=== PATIENT | female | born 1965 | race African-American/Black ===

== ENCOUNTER 2017-04-18 10:21 | Observation (INO) | payer BC, OTHER ==
[2017-04-18] MEDS ORDERED: NITROGLYCERIN 0.4 MG/TAB 25 TAB/BOTTLE SL PRN (10:52)
[2017-04-18] MEDS ORDERED: NORMAL SALINE 1000 ML 1,000 ML IV PRN (10:52)
[2017-04-18] MEDS ORDERED: LANSOPRAZOLE 30 MG TAB.RAP.DR PO ONE (11:30)
[2017-04-18 12:05] LABS: ABSOLUTE LYMPHOCYTES (AUTO) 1.7 10^3/uL (0.5-4.7); ABSOLUTE MONOCYTES (AUTO) 0.4 10^3/uL (0.1-1.4); ABSOLUTE NEUT (AUTO) 2.7 10^3/uL (1.7-8.2); BASOPHILS % (AUTO) 0.5 % (0-2); EOSINOPHILS % (AUTO) 0.8 % (0-6); HEMATOCRIT 37.1 % (36.0-47.0); HEMOGLOBIN 12.2 g/dL (12.0-15.5); HGB HCT DIFFERENCE -0.5; LYMPHOCYTES % (AUTO) 35.2 % (13-45); MEAN CORPUSCULAR HEMOGLOBIN 22.2 pg (27.0-33.4); MEAN CORPUSCULAR HGB CONC 32.8 g/dL (32.0-36.0); MEAN CORPUSCULAR VOLUME 68 fl (80-97); MONOCYTES % (AUTO) 8.5 % (3-13); RED BLOOD COUNT 5.47 10^6/uL (3.72-5.28); RED CELL DISTRIBUTION WIDTH 14.4 % (11.5-14.0)
[2017-04-18 12:29] LABS: ALANINE AMINOTRANSFERASE 24 U/L (9-52); ALBUMIN 4.1 g/dL (3.5-5.0); ALKALINE PHOSPHATASE 59 U/L (38-126); ANION GAP 12 (5-19); ASPARTATE AMINO TRANSFERASE 20 U/L (14-36); BILIRUBIN,DIRECT 0.3 mg/dL (0.0-0.4); BILIRUBIN,TOTAL 0.5 mg/dL (0.2-1.3); BLOOD UREA NITROGEN 18 mg/dL (7-20); CALCIUM 9.5 mg/dL (8.4-10.2); CARBON DIOXIDE 24 mmol/L (22-30); CHLORIDE 103 mmol/L (98-107); CREATINE KINASE 81 U/L (30-135); GLUCOSE 91 mg/dL (75-110); POTASSIUM 3.1 mmol/L (3.6-5.0); SODIUM 139.1 mmol/L (137-145); TOTAL PROTEIN 7.2 g/dL (6.3-8.2)
[2017-04-18 13:16] LABS: CREATINE KINASE MB 0.32 ng/mL (<4.55)
[2017-04-18 13:20] LABS: TROPONIN I < 0.012 ng/mL
--- NOTE | 2017-04-18 13:34 | EKG REPORT ---
SEVERITY:- BORDERLINE ECG - SINUS RHYTHM BORDERLINE T WAVE ABNORMALITIES : Confirmed by: Bob Jurado MD 18-Apr-2017 13:34:24
--- NOTE | 2017-04-18 13:56 | RADIOLOGY REPORT (SQ) ---
EXAM DESCRIPTION: CTA CHEST COMPLETED DATE/TIME: 04/18/2017 1:24 pm REASON FOR STUDY: PE COMPARISON: 05/21/2014 TECHNIQUE: CT scan of the chest performed using helical scanning technique with dynamic intravenous contrast injection. Images reviewed with lung, soft tissue and bone windows. Reconstructed coronal and sagittal MPR images reviewed. Additional 3 dimensional post-processing performed to develop Maximal Intensity Projection images (MS P). All images stored on PACS. All CT scanners at this facility use dose modulation, iterative reconstruction, and/or weight based d osing when appropriate to reduce radiation dose to as low as reasonably achievable (ALARA). [facility]: Dose Right [facility]: CareDose [facility]: Dose Right [facility]: Teradose 4D [facility]: Diagnovus CONTRAST TYPE AND DOSE: contrast/concentration: Isovue 370.00 mg/ml; Total Contrast Delivered: 61.0 ml; Total Saline Delivered: 106.1 ml RENAL FUNCTION: Creatinine 0.8 BUN 18 RADIATION DOSE: Up-to-date CT equipment and radiation dose reduction techniques were employed. CTDIv ol: 9.4 - 13.2 mGy. DLP: 340 mGy-cm. . LIMITATIONS: None. FINDINGS: LUNGS AND PLEURA: No masses, infiltrates, pneumothorax. No pleural effusions, calcificati ons. AORTA AND GREAT VESSELS: No aneurysm or dissection. HEART: No pericardial effusion. PULMONARY ARTERIES: No emboli visualized in the main pulmonary arteries or the segmental branches. HILAR AND MEDIASTINAL STRUCTURES: No identified masses or abnormal nodes. HARDWARE: None in the chest. UPPER ABDOMEN: Gallstones. THYROID AND OTHER SOFT TISSUES: No masses. No adenopathy. BONES: No acute or significant finding. 3D MIPS: Confirm above findings. OTHER: Breast implants are present. The implant on the left appears to be collapsed IMPRESSION: NORMAL CTA OF THE CHEST. NO PULMONARY EMBOLI. TECHNICAL DOCUMENTATION: JOB ID: [id number] Quality ID # [id number]: Final reports with documentation of one or more dose reduction techniques (e.g., Au tomated exposure control, adjustment of the mA and/or kV according to patient size, use of iterative reconstruction technique) 2010 [employer]- All Rights Reserved
[2017-04-18] MEDS: POTASSIUM CHLORIDE 10 MEQ TABLET.SA PO SCH ×2 (14:21→17:38)
[2017-04-18 14:53] LABS: PARTIAL THROMBOPLASTIN TIME 25.4 SEC (23.5-35.8); PROTHROMBIN TIME 13.9 SEC (11.4-15.4)
--- NOTE | 2017-04-18 14:55 | RADIOLOGY REPORT (SQ) ---
EXAM DESCRIPTION: CHEST PA/LAT COMPLETED DATE/TIME: 04/18/2017 2:44 pm REASON FOR STUDY: PE COMPARISON: 05/21/2014 EXAM PARAMETERS: NUMBER OF VIEWS: two views TECHNIQUE: Digital Frontal and Lateral radiographic views of the chest acquired. RADIATION DOSE: NA LIMITATIONS: none FINDINGS: LUNGS AND PLEURA: No opacities, masses or pneumothorax. No pleural effusion. MEDIASTINUM AND HILAR STRUCTURES: No masses or contour abnormalities. HEART AND VASCULAR STRUCTURES: Heart normal size. No evidence for failure. BONES: No acute findings. HARDWARE: None in the chest. OTHER: No other significant finding. IMPRESSION: NO SIGNIFICANT RADIOGRAPHIC FINDING IN THE CHEST. TECHNICAL DOCUMENTATION: JOB ID: [id number] [employer]- All Rights Reserved
[2017-04-18 18:37] LABS: CREATINE KINASE MB 0.37 ng/mL (<4.55)
[2017-04-18 18:44] LABS: TROPONIN I < 0.012 ng/mL
--- NOTE | 2017-04-18 19:07 | PDOC H&P ---
History of Present Illness Admission Date/PCP: 04/18/17 10:21 SHANA MILES MD Patient complains of: Chest pain, Shortness of breath, Fatigue History of Present Illness: KIRSTIE BENOIT is a 51 year old female known to my practice who presented to the office earlier today with about 1-2 weeks intermittent episodes of chest pain, shortness of breath and fatigue. She seek medical evaluation this morning due to increase intensity in her chest pain and shortness of breath with pain radiating into her upper back. She denied associated palpitation, diaphoresis, nausea, vomiting or abdominal pain. She denied any fever or chills. Her morbidities include right breast cancer s/p mastectomy, right upper extremity post surgical lymphedema, and Anemia. Her medication regimen include Tamoxifen for breast cancer adjunct therapy. Past Medical History Cardiac Medical History: Reports: Hypertension Neurological Medical History: Reports: Migraine Malignancy Medical History: Reports: Breast Cancer - Right breast , s/p mastectomy Hematology: Reports: Anemia Social History Smoking Status: Never Smoker Hx Recreational Drug Use: No Drugs: None Hx Prescription Drug Abuse: No Family History Parental Family History Reviewed: Yes Children Family History Reviewed: Yes Sibling(s) Family History Reviewed.: Yes Medication/Allergy Home Medications: Hydrochlorothiazide 25 mg PO DAILY 05/21/14 Sumatriptan Succ/Naproxen Sod [Treximet 85-500 mg Tablet] 1 each PO DAILY PRN Topiramate [Topamax 100 mg Tablet] 300 mg PO QHS 05/21/14 Allergies/Adverse Reactions: Sulfa (Sulfonamide Antibiotics) Adverse Reaction (Verified 05/21/14 15:12) Review of Systems Constitutional: ABSENT: chills, fever(s), headache(s), weight gain, weight loss Eyes: ABSENT: visual disturbances Ears: ABSENT: hearing changes Nose, Mouth, and Throat: ABSENT: as per HPI, headache(s), mouth pain, sore throat, vertigo, other Breasts: PRESENT: other - Right mastectomy healed scar Cardiovascular: ABSENT: chest pain, dyspnea on exertion, edema, orthropnea, palpitations Respiratory: ABSENT: cough, hemoptysis Gastrointestinal: ABSENT: abdominal pain, constipation, diarrhea, hematemesis, hematochezia, nausea, vomiting Musculoskeletal: ABSENT: joint swelling Integumentary: PRESENT: other - healed wound of prior mastectomy Neurological: ABSENT: abnormal gait, abnormal speech, confusion, dizziness, focal weakness, syncope Psychiatric: ABSENT: anxiety, depression, homidical ideation, suicidal ideation Endocrine: ABSENT: cold intolerance, heat intolerance, menstrual abnormalities, polydipsia, polyuria Hematologic/Lymphatic: ABSENT: easy bleeding, easy bruising, lymphadenopathy Allergic/Immunologic: ABSENT: as per HPI, seasonal rhinorrhea, other Physical Exam Vital Signs: Temp Pulse Resp BP Pulse Ox 98.3 F 77 17 105/64 100 04/18/17 15:28 04/18/17 15:28 04/18/17 15:28 04/18/17 15:28 04/18/17 15:28 Intake & Output 04/17/17 04/18/17 04/19/17 06:59 06:59 06:59 Intake Total 858 Balance 858 Weight 69.626 kg General appearance: PRESENT: no acute distress, cooperative Head exam: PRESENT: atraumatic, normocephalic Eye exam: PRESENT: conjunctiva pink, EOMI, PERRLA. ABSENT: scleral icterus Ear exam: PRESENT: normal external ear exam Mouth exam: PRESENT: moist, tongue midline Teeth exam: ABSENT: dental caries, dental tenderness, edentulous, poor dentation , other Throat exam: ABSENT: post pharyngeal erythema, tonsillar erythema, tonsillar exudate, tonsillogmegaly, other Neck exam: ABSENT: carotid bruit, full ROM, JVD, lymphadenopathy, meningismus, tenderness, thyromegaly, tracheal deviation, tracheostomy, other Respiratory exam: PRESENT: clear to auscultation pardeep Cardiovascular exam: PRESENT: RRR. ABSENT: diastolic murmur, rubs, systolic murmur Vascular exam: PRESENT: normal capillary refill. ABSENT: pallor GI/Abdominal exam: PRESENT: normal bowel sounds, soft. ABSENT: distended, guarding, mass, organolmegaly, rebound, tenderness Rectal exam: PRESENT: deferred Extremities exam: ABSENT: pedal edema Musculoskeletal exam: PRESENT: tenderness Neurological exam: PRESENT: alert, awake, oriented to person, oriented to place , oriented to time, oriented to situation, CN II-XII grossly intact. ABSENT: motor sensory deficit Psychiatric exam: PRESENT: appropriate affect, normal mood. ABSENT: homicidal ideation, suicidal ideation Skin exam: PRESENT: dry, intact, warm. ABSENT: cyanosis, rash Results Laboratory Results: 04/18/17 11:25 04/18/17 11:25 04/18/17 04/18/17 11:25 11:25 WBC 5.0 RBC 5.47 H Hgb 12.2 Hct 37.1 MCV 68 L MCH 22.2 L MCHC 32.8 RDW 14.4 H Plt Count 196 Seg Neutrophils % 55.0 Lymphocytes % 35.2 Monocytes % 8.5 Eosinophils % 0.8 Basophils % 0.5 Absolute Neutrophils 2.7 Absolute Lymphocytes 1.7 Absolute Monocytes 0.4 Absolute Eosinophils 0.0 Absolute Basophils 0.0 Sodium 139.1 Potassium 3.1 L Chloride 103 Carbon Dioxide 24 Anion Gap 12 BUN 18 Creatinine 0.80 Est GFR ( Amer) > 60 Est GFR (Non-Af Amer) > 60 Glucose 91 Calcium 9.5 Total Bilirubin 0.5 AST 20 ALT 24 Alkaline Phosphatase 59 Total Protein 7.2 Albumin 4.1 04/18/17 04/18/17 04/18/17 11:25 12:20 17:55 Creatine Kinase 81 80 CK-MB (CK-2) 0.32 Troponin I < 0.012 04/18/17 17:55 Creatine Kinase CK-MB (CK-2) 0.37 Troponin I < 0.012 Impressions: Chest X-Ray 04/18/17 00:00 IMPRESSION: NO SIGNIFICANT RADIOGRAPHIC FINDING IN THE CHEST. Chest/Abdomen CTA 04/18/17 00:00 IMPRESSION: NORMAL CTA OF THE CHEST. NO PULMONARY EMBOLI. Assessment & Plan - Diagnosis (1) Chest pain with moderate risk of acute coronary syndrome Is this a current diagnosis for this admission?: YesPlan: See admitting physician orders. (2) Shortness of breath Is this a current diagnosis for this admission?: YesPlan: See admitting physician orders. (3) History of cancer of right breast Is this a current diagnosis for this admission?: YesPlan: See admitting physician orders. (4) Sickle cell trait Is this a current diagnosis for this admission?: YesPlan: See admitting physician orders. - Time Time Spent: 50 to 70 Minutes Medications reviewed and adjusted accordingly: Yes Anticipated discharge: Home Within: within 24 hours - Inpatient Certification Post Hospital Care: D/C [employer] Documentation - Plan Summary Plan Summary: See admitting physician orders.
[2017-04-18] MEDS ORDERED: IBUPROFEN 600 MG TABLET PO ONE (20:00)
[2017-04-19 01:46] LABS: TROPONIN I < 0.012 ng/mL
[2017-04-19 06:32] LABS: ANION GAP 9 (5-19); BLOOD UREA NITROGEN 15 mg/dL (7-20); CALCIUM 9.1 mg/dL (8.4-10.2); CARBON DIOXIDE 24 mmol/L (22-30); CHLORIDE 110 mmol/L (98-107); CREATININE RESULT 0.72 mg/dL (0.52-1.25); GLUCOSE 115 mg/dL (75-110); SODIUM 142.7 mmol/L (137-145)
[2017-04-19] MEDS ORDERED: IBUPROFEN 600 MG TABLET PO SCH (08:00)
[2017-04-19] MEDS ORDERED: LANSOPRAZOLE 30 MG TAB.RAP.DR PO SCH (08:00)
[2017-04-19 08:52] VITALS: BP 101/63
--- NOTE | 2017-04-19 08:58 | PDOC DISCHARGE SUMMARY ---
General - Admit/Disc Date/PCP Admission Date/Primary Care Provider: 04/18/17 10:21 SHANA MILES MD Discharge Date: 04/19/17 - Discharge Diagnosis (1) Chest pain with moderate risk of acute coronary syndrome Is this a current diagnosis for this admission?: Yes (2) Shortness of breath Is this a current diagnosis for this admission?: Yes (3) History of cancer of right breast Is this a current diagnosis for this admission?: Yes (4) Sickle cell trait Is this a current diagnosis for this admission?: Yes (5) Hypokalemia Is this a current diagnosis for this admission?: YesSummary: Treated and resolved. (6) Costochondral chest pain Is this a current diagnosis for this admission?: YesSummary: Improving on NSAID therapy and rest - Additional Information Discharge Diet: Regular Discharge Activity: No Lifting/Push/Pulling, Slowly Increase Activity Home Medications: Ibuprofen [Motrin 600 mg Tablet] 600 mg PO TID #20 tablet 04/19/17 History of Present Illness History of Present Illness: KIRSTIE BENOIT is a 51 year old female known to my practice who presented to the office earlier today with about 1-2 weeks intermittent episodes of chest pain, shortness of breath and fatigue. She seek medical evaluation this morning due to increase intensity in her chest pain and shortness of breath with pain radiating into her upper back. She denied associated palpitation, diaphoresis, nausea, vomiting or abdominal pain. She denied any fever or chills. Her morbidities include right breast cancer s/p mastectomy, right upper extremity post surgical lymphedema, and Anemia. Her medication regimen include Tamoxifen for breast cancer adjunct therapy. Hospital Course Hospital Course: Patient's evaluation for possible cardiac and pulmonary pathology as cause of her symptoms were negative. She was managed with Ibuprofen 600mg p.o tid with meals and IV fluid hydration thereafter with improvement in her symptoms.She will be discharged home today with same medication management and instruction to avoid lifting, pulling or carrying any significant weight. Adequate oral hydration with water and rest. She will resume her duty on 04/23/17. She will follow up in the office as instructed upon discharge. Physical Exam Vital Signs: Temp Pulse Resp BP Pulse Ox 97.5 F 76 16 90/66 L 100 04/19/17 03:41 04/19/17 07:00 04/19/17 03:41 04/19/17 03:41 04/19/17 03:41 Intake & Output 04/18/17 04/19/17 04/20/17 06:59 06:59 06:59 Intake Total 1808 Balance 1808 Weight 69.626 kg General appearance: PRESENT: no acute distress, cooperative Head exam: PRESENT: atraumatic, normocephalic Eye exam: PRESENT: conjunctiva pink, EOMI, PERRLA. ABSENT: scleral icterus Respiratory exam: PRESENT: clear to auscultation pardeep Cardiovascular exam: PRESENT: RRR. ABSENT: diastolic murmur, rubs, systolic murmur GI/Abdominal exam: PRESENT: normal bowel sounds, soft. ABSENT: distended, guarding, mass, organolmegaly, rebound, tenderness Extremities exam: PRESENT: tenderness - lower sternal structure region. ABSENT : pedal edema Musculoskeletal exam: PRESENT: tenderness - lower sternal bone region suggestive of possible costochondriatis Neurological exam: PRESENT: alert, awake, oriented to person, oriented to place , oriented to time, oriented to situation, CN II-XII grossly intact. ABSENT: motor sensory deficit Psychiatric exam: PRESENT: appropriate affect, normal mood. ABSENT: homicidal ideation, suicidal ideation Skin exam: PRESENT: dry, intact, warm. ABSENT: cyanosis, rash Results Laboratory Results: 04/18/17 11:25 04/19/17 05:47 04/18/17 04/18/17 04/18/17 11:25 11:25 17:55 WBC 5.0 RBC 5.47 H Hgb 12.2 Hct 37.1 MCV 68 L MCH 22.2 L MCHC 32.8 RDW 14.4 H Plt Count 196 Seg Neutrophils % 55.0 Lymphocytes % 35.2 Monocytes % 8.5 Eosinophils % 0.8 Basophils % 0.5 Absolute Neutrophils 2.7 Absolute Lymphocytes 1.7 Absolute Monocytes 0.4 Absolute Eosinophils 0.0 Absolute Basophils 0.0 Sodium 139.1 Potassium 3.1 L Chloride 103 Carbon Dioxide 24 Anion Gap 12 BUN 18 Creatinine 0.80 Est GFR ( Amer) > 60 Est GFR (Non-Af Amer) > 60 Glucose 91 Calcium 9.5 Magnesium 2.3 Total Bilirubin 0.5 AST 20 ALT 24 Alkaline Phosphatase 59 Total Protein 7.2 Albumin 4.1 04/19/17 05:47 WBC RBC Hgb Hct MCV MCH MCHC RDW Plt Count Seg Neutrophils % Lymphocytes % Monocytes % Eosinophils % Basophils % Absolute Neutrophils Absolute Lymphocytes Absolute Monocytes Absolute Eosinophils Absolute Basophils Sodium 142.7 Potassium 4.0 Chloride 110 H Carbon Dioxide 24 Anion Gap 9 BUN 15 Creatinine 0.72 Est GFR ( Amer) > 60 Est GFR (Non-Af Amer) > 60 Glucose 115 H Calcium 9.1 Magnesium Total Bilirubin AST ALT Alkaline Phosphatase Total Protein Albumin 04/18/17 04/18/17 04/18/17 11:25 12:20 17:55 Creatine Kinase 81 80 CK-MB (CK-2) 0.32 Troponin I < 0.012 04/18/17 04/19/17 04/19/17 17:55 00:16 00:16 Creatine Kinase 68 CK-MB (CK-2) 0.37 0.30 Troponin I < 0.012 < 0.012 Impressions: Chest X-Ray 04/18/17 00:00 IMPRESSION: NO SIGNIFICANT RADIOGRAPHIC FINDING IN THE CHEST. Chest/Abdomen CTA 04/18/17 00:00 IMPRESSION: NORMAL CTA OF THE CHEST. NO PULMONARY EMBOLI. Qualifiers PATEINT BEING DISCHARGED WITH ANY OF THE FOLLOWING DIAGNOSIS?: No Plan Discharge Plan: Discharge home today. Follow up in the office as instructed upon discharge.
[2017-04-19] MEDS ORDERED: ENOXAPARIN SODIUM INJ 40 MG/0.4 ML DISP.SYRIN SUBCUT SCH (10:00)
== END 2017-04-19 09:49 | disposition home or self-care (01) ==
LOC: UNDOADMOB 10:21 → 4N 10:21 → UNDODISOB 04-19 09:49
PROVIDERS: ADMIT Internal Medicine Geriatric Medicine; ATTEND Internal Medicine Geriatric Medicine
DX: R07.1 Chest pain on breathing (principal); R06.02 Shortness of breath; D57.3 Sickle-cell trait; E87.6 Hypokalemia; I97.89 Other postprocedural complications and disorders of the circulatory system, not elsewhere classified; I89.0 Lymphedema, not elsewhere classified; Z85.3 Personal history of malignant neoplasm of breast; Z79.818 Long term (current) use of other agents affecting estrogen receptors and estrogen levels; Z90.11 Acquired absence of right breast and nipple
CPT/HCPCS: 36415 ×2; 82553 ×2; 82550 ×2; 83735; 85025; 85610; 85730; 80048; 80053; 84484 ×2; 71020; 71275; 93005; 93010; G0378 ×2; G0379

== ENCOUNTER → 2017-09-12 | Outpatient (CLI) | payer BC, OTHER ==
--- NOTE | 2017-09-12 12:25 | WOMENS IMAGING REPORT ---
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 TECHNIQUE: Standard craniocaudal and mediolateral oblique images of the breast recorded with digital acquisition and breast tomosynthesis. Additional "push-back" craniocaudal and mediolateral oblique i mages acquired. Additional true lateral images acquired with tomosynthesis. LIMITATIONS: None. FINDINGS: IMPLANT: Subglandular implant. BREAST: left MASSES: No suspicious masses. CALCIFICATIONS: No new or suspicious calcifications. ARCHITECTURAL DISTORTION: None. DEVELOPING DENSITY: None. ASYMMETRY: None noted. OTHER: No other significant findings. Read with the assistance of CAD. .[facility] - R2 Cenova Version 1.3 .[facility] - R2 Cenova Version 1.3 .[facility] - R2 Cenova Version 2.4 .[facility] [place] - R2 Cenova Version 2.4 .[facility] - R2 Dry Cleaning Attendant Version 9.2 IMPRESSION: Stable mammographic appearance. No worrisome findings. BREAST DENSITY: c. The breasts are heterogeneously dense, which may obscure small masses. BIRAD: 2 Benign findings. RECOMMENDATION: RECOMMENDED FOLLOW UP: Birads 1 or 2: The patient should resume routine screening . SPECIFIC INTERVENTION/IMAGING/CONSULTATION RECOMMENDED:No additional intervention/ imaging/consultati on needed at this time. COMMUNICATION:The imaging findings were not discussed with the patient. Her referring provider has be en notified of the findings. COMMENT: The patient has been notified of the results by letter per SA requirements. Additional no tification policies are in place for contacting patient with suspicious or incomplete findings. Quality ID #[id number]: The [employer] recommends an annual screening mammogram for women aged 40 years or over. This facility utilizes a reminder system to ensure that all patients receive reminder letters, and/or direct phone calls for appointments. This includes reminders for routine scr eening mammograms, diagnostic mammograms, or other Breast Imaging Interventions when appropriate. Th is patient will be placed in the appropriate reminder system. The [employer] (ACR) has developed recommendations for screening MRI of the breast s in certain patient populations, to be used in conjunction with mammography. Breast MRI surveillanc e may be appropriate for women with more than 20% lifetime risk of developing breast cancer as deter mined by genetic testing, significant family history of the disease, or history of mantle radiation f or Hodgkins Disease. ACR Practice Guidelines 2008. DBT Technology DBT is a type of tomographic mammography. With conventional mammography, overlapping breast tissue ma y make lesions difficult to detect, even with good compression. DBT uses an x-ray tube that rotates a round the breast, taking images at different angles. These images are then combined to create thin sl ices of the breast that the radiologist can view as a 3D reconstruction. The [facility] unit can perform full-field digital mammograms (2D imaging); or DBT (3D imaging); or both, in a combination mode that quickly performs both the mammogram and the tomosynthesis scan while the breast is still compressed. PQRS 6045F: Fluoroscopic imaging is not utilized for breast tomosynthesis. TECHNICAL DOCUMENTATION: FINDING NUMBER: (1) ASSESSMENT: (1) JOB ID: [id number] [employer]- All Rights Reserved
== END ==
LOC: WI 10:55
PROVIDERS: ATTEND Internal Medicine Medical Oncology
DX: C50.919 Malignant neoplasm of unspecified site of unspecified female breast (principal)
CPT/HCPCS: 77061; G0206

== ENCOUNTER 2017-10-16 06:33 | Observation (INO) | payer BC, OTHER ==
[2017-10-16] MEDS ORDERED: ONDANSETRON HCL INJ/PF 4 MG/2 ML SDV IV ONE (07:19)
--- NOTE | 2017-10-16 07:19 | ER Document Report ---
ED General - General Chief Complaint: Abdominal Pain Stated Complaint: ABDOMINAL PAIN/NAUSEA,VOMITING Time Seen by Provider: 10/16/17 07:08 Notes: 52-year-old lady woke up at 2 AM with abdominal pain upper radiating around her ribs and vomiting. This is been going on for about an hour. She was fine when she went to bed. She has started Tamiflu yesterday after being diagnosed clinically with the flu without a swab symptoms it consisted of congestion cough and fever but no body aches sore throat or headache. Normal bowel movement this morning no diarrhea. No fevers. TRAVEL OUTSIDE OF THE [place] IN LAST 30 DAYS: No - Related Data Allergies/Adverse Reactions: Sulfa (Sulfonamide Antibiotics) Adverse Reaction (Verified 05/21/14 15:12) Past Medical History - Social History Smoking Status: Never Smoker Family History: None - Past Medical History Cardiac Medical History: Reports: Hx Hypertension Neurological Medical History: Reports: Hx Migraine Malignancy Medical History: Reports: Hx Breast Cancer - Right breast , s/p mastectomy Review of Systems - Review of Systems Notes: REVIEW OF SYSTEMS GEN: Denies fever, chills, weight loss ENT: Denies sore throat, nasal discharge, ear pain EYES: Denies blurry vision, eye pain, discharge CV: Denies chest pain, palpitations, edema RESP: Cough and congestion GI: Dental pain diarrhea MSK: Denies joint pain/swelling, edema, SKIN: Denies rash, skin lesions LYMPH: Denies swollen glands/lymph nodes NEURO: Denies headache, focal weakness or numbness, dizziness PSYCH: Denies depression, suicidal or homicidal ideation PHYSICAL EXAMINATION General: No acute distress, well-nourished Head: Atraumatic, normocephalic ENT: Mouth normal, oropharynx moist, no exudates or tonsillar enlargement Eyes: Conjunctiva normal, pupils equal, lids normal Neck: No JVD, supple, no guarding CVS: Normal rate, regular rhythm, no murmurs Resp: No resp distress, equal and normal breath sounds bilaterally GI: Nondistended, soft, no tenderness to palpation, no rebound or guarding Ext: No deformities, no edema, normal range of motion in upper and lower ext Back: No CVA or midline TTP Skin: No rash, warm Lymphatic: No lymphadeopathy noted Neuro: Awake, alert. Face symmetric. GCS 15. Cough and congestion Physical Exam - Vital signs Vitals: Temp Pulse Resp BP Pulse Ox 98.9 F 86 20 147/89 H 99 10/16/17 06:51 10/16/17 06:51 10/16/17 06:51 10/16/17 06:51 10/16/17 06:51 Course - Re-evaluation Re-evalutation: 10/16/17 07:18 Well-appearing lady with abdominal pain and nausea after starting Tamiflu likely a side effect of the medication rather than an acute abdominal issue such as pancreatitis and hepatitis gastritis W colitis or hepatitis. She is nontender. Zofran fluids. Will test for flu and stop Tamiflu if negative. 10/16/17 10:31 CT shows likely findings of cholecystitis. Labs are normal but pain persists. On repeat exam approximately 10:20 AM the patient does have a positive Villafuerte sign. Spoke with surgery Dr. Jd Thompson he will see the patient did admit. - Vital Signs Vital signs: Temp Pulse Resp BP Pulse Ox 98.9 F 86 20 147/89 H 99 10/16/17 06:51 10/16/17 06:51 10/16/17 06:51 10/16/17 06:51 10/16/17 06:51 - Laboratory Result Diagrams: 10/16/17 08:27 10/16/17 08:27 Laboratory results interpreted by me: 10/16/17 10/16/17 08:27 08:27 RBC 5.70 H MCV 69 L MCH 21.9 L MCHC 31.9 L RDW 14.9 H Seg Neutrophils % 79.7 H Chloride 110 H Carbon Dioxide 21 L Glucose 113 H Calcium 10.3 H Discharge - Discharge Clinical Impression: Acute cholecystitis Condition: Fair Disposition: ADMITTED INPATIENT Admitting Provider: Surgicalist Unit Admitted: Surgical Floor
--- NOTE | 2017-10-16 07:34 | RADIOLOGY REPORT (SQ) ---
EXAM DESCRIPTION: CHEST SINGLE VIEW CLINICAL HISTORY: 52 years, Female, abd pain COMPARISON: 8-2-17. FINDINGS: Normal lung volume, clear parenchyma, normal cardiac silhouette, and intact bony thorax. IMPRESSION: No acute cardiopulmonary findings.
[2017-10-16] MEDS ORDERED: KETOROLAC TROMETHAMINE INJ/PF 30 MG/1 ML SDV IV ONE (08:01)
[2017-10-16 08:48] LABS: ABSOLUTE LYMPHOCYTES (AUTO) 1.1 10^3/uL (0.5-4.7); ABSOLUTE MONOCYTES (AUTO) 0.3 10^3/uL (0.1-1.4); ABSOLUTE NEUT (AUTO) 5.8 10^3/uL (1.7-8.2); BASOPHILS % (AUTO) 0.6 % (0-2); EOSINOPHILS % (AUTO) 0.1 % (0-6); HEMATOCRIT 39.2 % (36.0-47.0); HEMOGLOBIN 12.5 g/dL (12.0-15.5); LYMPHOCYTES % (AUTO) 15.5 % (13-45); MEAN CORPUSCULAR HEMOGLOBIN 21.9 pg (27.0-33.4); MEAN CORPUSCULAR HGB CONC 31.9 g/dL (32.0-36.0); MEAN CORPUSCULAR VOLUME 69 fl (80-97); MONOCYTES % (AUTO) 4.1 % (3-13); PLATELET COUNT 218 10^3/uL (150-450); RED CELL DISTRIBUTION WIDTH 14.9 % (11.5-14.0); SEGMENTED NEUTROPHILS % (AUTO) 79.7 % (42-78); TOTAL CELLS COUNTED % (AUTO) 100 %; WHITE BLOOD COUNT 7.3 10^3/uL (4.0-10.5)
[2017-10-16 08:51] LABS: APPEARANCE,URINE CLEAR; BILIRUBIN,URINE NEGATIVE (NEGATIVE); COLOR,URINE YELLOW; GLUCOSE, URINE NEGATIVE (NEGATIVE); KETONES,URINE NEGATIVE (NEGATIVE); LEUKOCYTE ESTERASE,URINE NEGATIVE (NEGATIVE); NITRITE,URINE NEGATIVE (NEGATIVE); PROTEIN,URINE NEGATIVE (NEGATIVE); URINE SPECIFIC GRAVITY 1.019; UROBILINOGEN,URINE NEGATIVE mg/dL (<2.0)
[2017-10-16 09:07] LABS: A TYPE INFLUENZA AG NEGATIVE (NEGATIVE)
[2017-10-16 09:08] LABS: B INFLUENZA AG NEGATIVE (NEGATIVE)
[2017-10-16 09:14] LABS: ALANINE AMINOTRANSFERASE 25 U/L (9-52); ALBUMIN 4.6 g/dL (3.5-5.0); ALKALINE PHOSPHATASE 63 U/L (38-126); ANION GAP 12 (5-19); ASPARTATE AMINO TRANSFERASE 22 U/L (14-36); BILIRUBIN,DIRECT 0.2 mg/dL (0.0-0.4); BILIRUBIN,TOTAL 0.3 mg/dL (0.2-1.3); BLOOD UREA NITROGEN 17 mg/dL (7-20); CALCIUM 10.3 mg/dL (8.4-10.2); CARBON DIOXIDE 21 mmol/L (22-30); CHLORIDE 110 mmol/L (98-107); GLUCOSE 113 mg/dL (75-110); LIPASE 69.2 U/L (23-300); POTASSIUM 4.3 mmol/L (3.6-5.0); SODIUM 142.5 mmol/L (137-145); TOTAL PROTEIN 7.8 g/dL (6.3-8.2)
[2017-10-16] MEDS ORDERED: MORPHINE SULFATE 10 MG/ML INJ IV ONE (09:57)
--- NOTE | 2017-10-16 10:24 | RADIOLOGY REPORT (SQ) ---
EXAM DESCRIPTION: CT ABD/PELVIS WITH IV ONLY COMPLETED DATE/TIME: 10/16/2017 10:02 am REASON FOR STUDY: abd pain, upper COMPARISON: None. TECHNIQUE: CT scan of the abdomen and pelvis performed using helical scanning technique with dynamic intravenous contrast injection. No oral contrast. Images reviewed with lung, soft tissue, and bone windows. Reconstructed coronal and sagittal MPR images reviewed. Delayed images for evaluation of the urinary system also acquired. All images stored on PACS. All CT scanners at this facility use dose modulation, iterative reconstruction, and/or weight based d osing when appropriate to reduce radiation dose to as low as reasonably achievable (ALARA). [facility]: Dose Right [facility]: CareDose [facility]: Dose Right [facility]: Teradose 4D [facility]: Digital Vault CONTRAST TYPE AND DOSE: contrast/concentration: Isovue 370.00 mg/ml; Total Contrast Delivered: 79.0 ml; Total Saline Delivered: 57.5 ml RENAL FUNCTION: Creatinine 0.76 RADIATION DOSE: CT Rad equipment meets quality standard of care and radiation dose reduction techniq ues were employed. CTDIvol: 6.8 - 9.6 mGy. DLP: 875 mGy-cm.. LIMITATIONS: None. FINDINGS: LOWER CHEST: A partially deflated breast implant is identified on the left. . No nodules or infiltrates. LIVER: Normal size. No masses. No dilated ducts. There is mild fatty infiltration of the liver. SPLEEN: Normal size. No focal lesions. PANCREAS: No masses. No significant calcifications. No adjacent inflammation or peripancreatic fluid collections. Pancreatic duct not dilated. GALLBLADDER: The gallbladder appears mildly distended and contains a combination of biliary sludge an d small gallstones. No gallbladder wall thickening is identified. No inflammatory changes to suggest cholecystitis. ADRENAL GLANDS: No significant masses or asymmetry. RIGHT KIDNEY AND URETER: No solid masses. No significant calcifications. No hydronephrosis or hyd roureter. LEFT KIDNEY AND URETER: No solid masses. No significant calcifications. No hydronephrosis or hydr oureter. AORTA AND VESSELS: No aneurysm. No dissection. Renal arteries, SMA, celiac without stenosis. RETROPERITONEUM: No retroperitoneal adenopathy, hemorrhage or masses. BOWEL AND PERITONEAL CAVITY: No masses or inflammatory changes. No free fluid or peritoneal masses. APPENDIX: Normal. PELVIS: No mass. No free fluid. Normal bladder. ABDOMINAL WALL: No masses. No hernias. BONES: No significant or acute findings. OTHER: No other significant finding. IMPRESSION: The gallbladder appears mildly distended and contains a combination of biliary sludge an d small gallstones. No gallbladder wall thickening or pericholecystic fluid is identified. Other fi ndings as noted above TECHNICAL DOCUMENTATION: JOB ID: [id number] Quality ID # [id number]: Final reports with documentation of one or more dose reduction techniques (e.g., Au tomated exposure control, adjustment of the mA and/or kV according to patient size, use of iterative reconstruction technique) 2010 [employer] All Rights Reserved
--- NOTE | 2017-10-16 11:44 | RADIOLOGY REPORT (SQ) ---
EXAM DESCRIPTION: U/S ABDOMEN LIMITED W/O DOP COMPLETED DATE/TIME: 10/16/2017 10:25 am REASON FOR STUDY: cholecystitis? COMPARISON: CT abdomen pelvis 10/16/2017 TECHNIQUE: Dynamic and static grayscale images acquired of the abdomen and recorded on PACS. Stephenieo marilyn selected color Doppler and spectral images recorded. LIMITATIONS: None. FINDINGS: PANCREAS: Midline pancreas unremarkable LIVER: Diffusely echogenic from diffuse hepatocellular disease. No focal masses. LIVER VASCULATURE: Normal directional flow of the main portal vein and hepatic veins. GALLBLADDER: Multiple stones in the gallbladder without gallbladder wall thickening or pericholecysti c fluid ULTRASOUND-DETECTED GARCIA'S SIGN: Patient was medicated INTRAHEPATIC DUCTS AND COMMON DUCT: CBD and intrahepatic ducts normal caliber. No filling defects. D istal most common duct not well seen. INFERIOR VENA CAVA: Normal flow. AORTA: No aneurysm. RIGHT KIDNEY: Normal size. Normal echogenicity. No solid or suspicious masses. No hydronephrosis. No calcifications. PERITONEAL AND RIGHT PLEURAL SPACE: No ascites or effusions. OTHER: No other significant findings. IMPRESSION: Echogenic liver from diffuse hepatocellular disease. Multiple stones in the gallbladder, no gallbladder wall thickening or pericholecystic fluid. TECHNICAL DOCUMENTATION: JOB ID: [id number] [employer]- All Rights Reserved
[2017-10-16] MEDS ORDERED: ACETAMINOPHEN 325 MG TABLET PO PRN (14:53)
[2017-10-16] MEDS ORDERED: ONDANSETRON HCL INJ/PF 4 MG/2 ML SDV IV PRN (14:53)
[2017-10-16] MEDS ORDERED: PROMETHAZINE HCL INJ 25 MG/1 ML VIAL IV PRN (14:53)
[2017-10-16] MEDS ORDERED: ONDANSETRON 4 MG TAB.RAPDIS PO PRN (14:53)
[2017-10-16] MEDS ORDERED: PROMETHAZINE HCL 25 MG TABLET PO PRN (14:53)
--- NOTE | 2017-10-16 15:04 | PDOC H&P ---
History of Present Illness Admission Date/PCP: 10/16/17 10:35 DENIZ FARAH Patient complains of: Abdominal pain History of Present Illness: KIRSTIE BENOIT is a 52 year old female who presents with a 1 day history of abdominal pain. She reports rather sudden onset of epigastric and right upper quadrant abdominal pain with some radiation into the back as well as into the left upper abdomen. She reports no nausea or vomiting. She has had no antecedent history of abdominal pain. She does not report postprandial food intolerance. She has had no jaundice or acholic stools. She reports no fevers or chills. A CT scan was done which revealed evidence of cholelithiasis with a gallstone stuck in the neck of the gallbladder. There is no evidence of biliary ductal dilation. Past Medical History Cardiac Medical History: Reports: Hypertension Neurological Medical History: Reports: Migraine, Other - Migraine headaches Malignancy Medical History: Reports: Breast Cancer - Right breast , s/p mastectomy Malignancy History Note: Breast cancer Hematology: Reports: Anemia Past Surgical History Past Surgical History: Reports: Mastectomy - Right Social History Smoking Status: Never Smoker Frequency of Alcohol Use: Occasional Hx Recreational Drug Use: No Drugs: None Hx Prescription Drug Abuse: No - Advance Directive Resuscitation Status: Full Code Family History Family History: None Parental Family History Reviewed: No Children Family History Reviewed: No Sibling(s) Family History Reviewed.: No Medication/Allergy Home Medications: Azithromycin [Zithromax 250 mg Tablet] 250 mg PO ASDIR 10/16/17 Citalopram Hydrobromide [Celexa 20 mg Tablet] 20 mg PO QHS 10/16/17 Montelukast Sodium [Singulair 10 mg Tablet] 10 mg PO QHS 10/16/17 Oseltamivir Phosphate [Tamiflu 75 mg Capsule] 75 mg PO BID 10/16/17 Tamoxifen Citrate [Nolvadex 10 Mg Tablet] 10 mg PO BID 10/16/17 Topiramate [Trokendi Xr] 25 mg PO QHS 10/16/17 Topiramate [Trokendi Xr] 50 mg PO QHS 10/16/17 Allergies/Adverse Reactions: Sulfa (Sulfonamide Antibiotics) Adverse Reaction (Verified 05/21/14 15:12) Physical Exam Vital Signs: Temp Pulse Resp BP Pulse Ox 99.3 F 84 14 144/78 H 99 10/16/17 12:35 10/16/17 12:35 10/16/17 12:35 10/16/17 12:35 10/16/17 12:35 Intake & Output 10/15/17 10/16/17 10/17/17 06:59 06:59 06:59 Intake Total 240 Balance 240 General appearance: PRESENT: other - well nourished, well developed female in NAD. Eye exam: PRESENT: EOMI, PERRLA, other - Sclera anicteric Neck exam: PRESENT: full ROM, other - No thyromegaly Respiratory exam: PRESENT: clear to auscultation pardeep Cardiovascular exam: PRESENT: RRR GI/Abdominal exam: PRESENT: other - Soft, tender in the epigastric and right upper quadrant. No guarding or peritoneal signs Results Impressions: Chest X-Ray 10/16/17 07:10 IMPRESSION: No acute cardiopulmonary findings. Abdomen/Pelvis CT 10/16/17 08:07 IMPRESSION: The gallbladder appears mildly distended and contains a combination of biliary sludge and small gallstones. No gallbladder wall thickening or pericholecystic fluid is identified. Other findings as noted above Abdomen Ultrasound 10/16/17 10:25 IMPRESSION: Echogenic liver from diffuse hepatocellular disease. Multiple stones in the gallbladder, no gallbladder wall thickening or pericholecystic fluid. Assessment & Plan - Plan Summary Plan Summary: The patient is having pain which is not well controlled. She will be admitted to the hospital for observation. She does not want to have surgery at the present time. We will start her on IV fluids. Allow clear liquids as tolerated. Morphine as needed for pain control. She also has orders for Tylenol and [place]. If she decides to proceed with surgery we will get her scheduled for tomorrow.
[2017-10-16] MEDS: MORPHINE SULFATE 10 MG/ML INJ IV PRN ×2 (15:23→20:03)
[2017-10-16] MEDS: POTASSI CL 20 MEQ/D5-1/2NS 1L 1,000 ML IV PRN (16:22)
[2017-10-16] MEDS ORDERED: ENOXAPARIN SODIUM INJ 30 MG/0.3 ML DISP.SYRIN SUBCUT ONE (16:30)
[2017-10-16] MEDS: OXYCODONE-ACETAMINOPHEN 5-325 MG TABLET PO PRN (22:06)
[2017-10-16] MEDS: ZOLPIDEM TARTRATE 5 MG TABLET PO PRN (22:53)
[2017-10-17] MEDS: POTASSI CL 20 MEQ/D5-1/2NS 1L 1,000 ML IV PRN ×2 (02:08→15:39)
[2017-10-17] MEDS: OXYCODONE-ACETAMINOPHEN 5-325 MG TABLET PO PRN ×2 (04:00→20:11)
[2017-10-17 07:31] LABS: ABSOLUTE LYMPHOCYTES (AUTO) 1.8 10^3/uL (0.5-4.7); ABSOLUTE MONOCYTES (AUTO) 0.7 10^3/uL (0.1-1.4); ABSOLUTE NEUT (AUTO) 6.9 10^3/uL (1.7-8.2); BASOPHILS % (AUTO) 0.4 % (0-2); EOSINOPHILS % (AUTO) 0.3 % (0-6); HEMATOCRIT 38.2 % (36.0-47.0); HEMOGLOBIN 12.2 g/dL (12.0-15.5); LYMPHOCYTES % (AUTO) 18.9 % (13-45); MEAN CORPUSCULAR HEMOGLOBIN 21.7 pg (27.0-33.4); MEAN CORPUSCULAR VOLUME 68 fl (80-97); MONOCYTES % (AUTO) 7.5 % (3-13); PLATELET COUNT 188 10^3/uL (150-450); RED BLOOD COUNT 5.63 10^6/uL (3.72-5.28); RED CELL DISTRIBUTION WIDTH 14.5 % (11.5-14.0); SEGMENTED NEUTROPHILS % (AUTO) 72.9 % (42-78); TOTAL CELLS COUNTED % (AUTO) 100 %; WHITE BLOOD COUNT 9.4 10^3/uL (4.0-10.5)
[2017-10-17 07:43] LABS: ALANINE AMINOTRANSFERASE 132 U/L (9-52); ALBUMIN 3.7 g/dL (3.5-5.0); ALKALINE PHOSPHATASE 64 U/L (38-126); ASPARTATE AMINO TRANSFERASE 160 U/L (14-36); BILIRUBIN,DIRECT 0.3 mg/dL (0.0-0.4); BILIRUBIN,TOTAL 0.7 mg/dL (0.2-1.3); BLOOD UREA NITROGEN 10 mg/dL (7-20); CALCIUM 9.4 mg/dL (8.4-10.2); CARBON DIOXIDE 25 mmol/L (22-30); CHLORIDE 111 mmol/L (98-107); GLUCOSE 127 mg/dL (75-110); POTASSIUM 3.9 mmol/L (3.6-5.0); SODIUM 139.5 mmol/L (137-145); TOTAL PROTEIN 6.6 g/dL (6.3-8.2)
[2017-10-17 07:55] LABS: ANION GAP 5 (5-19)
--- NOTE | 2017-10-17 08:55 | PDOC PROGRESS REPORT ---
Subjective Progress Note for:: 10/17/17 Subjective:: Complaint of nausea and vomiting last night. Reason For Visit: SYMTOMATIC CHOLELITHIASIS Physical Exam Vital Signs: Temp Pulse Resp BP Pulse Ox 98.6 F 90 18 130/74 H 98 10/17/17 04:26 10/17/17 04:26 10/17/17 04:26 10/17/17 04:26 10/17/17 04:26 Intake & Output 10/16/17 10/17/17 10/18/17 06:59 06:59 06:59 Intake Total 240 Balance 240 Weight 78.8 kg General appearance: PRESENT: other - Well-nourished well-developed female in no acute distress Respiratory exam: PRESENT: clear to auscultation pardeep Cardiovascular exam: PRESENT: RRR GI/Abdominal exam: PRESENT: other - Soft, mild tenderness in the right upper quadrant. No guarding or peritoneal signs Results Laboratory Results: 10/17/17 06:41 10/17/17 06:41 10/17/17 10/17/17 06:41 06:41 WBC 9.4 RBC 5.63 H Hgb 12.2 Hct 38.2 MCV 68 L MCH 21.7 L MCHC 32.0 RDW 14.5 H Plt Count 188 Seg Neutrophils % 72.9 Lymphocytes % 18.9 Monocytes % 7.5 Eosinophils % 0.3 Basophils % 0.4 Absolute Neutrophils 6.9 Absolute Lymphocytes 1.8 Absolute Monocytes 0.7 Absolute Eosinophils 0.0 Absolute Basophils 0.0 Sodium 139.5 Potassium 3.9 Chloride 111 H Carbon Dioxide 25 Anion Gap 5 BUN 10 Creatinine 0.77 Est GFR ( Amer) > 60 Est GFR (Non-Af Amer) > 60 Glucose 127 H Calcium 9.4 Total Bilirubin 0.7 AST 160 H ALT 132 H Alkaline Phosphatase 64 Total Protein 6.6 Albumin 3.7 Impressions: Chest X-Ray 10/16/17 07:10 IMPRESSION: No acute cardiopulmonary findings. Abdomen/Pelvis CT 10/16/17 08:07 IMPRESSION: The gallbladder appears mildly distended and contains a combination of biliary sludge and small gallstones. No gallbladder wall thickening or pericholecystic fluid is identified. Other findings as noted above Abdomen Ultrasound 10/16/17 10:25 IMPRESSION: Echogenic liver from diffuse hepatocellular disease. Multiple stones in the gallbladder, no gallbladder wall thickening or pericholecystic fluid. Assessment & Plan - Plan Summary Plan Summary: She is having persistent symptoms of nausea and vomiting as well as some pain. GI consultation has been obtained. They are ordering a HIDA scan as well as a lipase. She does not want to have surgery. We will follow with the GI medicine service and discuss options after results of HIDA scan lipase returned.
[2017-10-17] MEDS: CEFAZOLIN 1 GM/D5W RTU 1 GM/50 ML RTUPB IV SCH ×3 (10:54→21:54)
[2017-10-17] MEDS: ENOXAPARIN SODIUM INJ 30 MG/0.3 ML DISP.SYRIN SUBCUT SCH (10:54)
[2017-10-17] MEDS ORDERED: MORPHINE SULFATE 10 MG/ML INJ ONE (13:07)
--- NOTE | 2017-10-17 14:24 | RADIOLOGY REPORT (SQ) ---
EXAM DESCRIPTION: NM HIDA SCAN COMPLETED DATE/TIME: 10/17/2017 1:56 pm REASON FOR STUDY: Abd pain,gallstones,no cholecystitis on CT/sono COMPARISON: Right upper quadrant ultrasound 10/16/2017 CT abdomen pelvis 10/16/2017 RADIONUCLIDE AND DOSE: DOSAGE RADIONUCLIDE: 5.4 millicuries Tc99m Mebrofenin, followed by a 1 mCi [place] dose. DOSAGE MORPHINE: 3 mg The route of agent administration: Intravenous TECHNIQUE: Serial imaging right upper quadrant up to 60 minutes following injection of radionuclide. Patient imaged AP and Right Lateral. LIMITATIONS: None. FINDINGS: LIVER: There is prompt homogeneous liver uptake. Delayed clearance of activity from the l iver, with mild persistent hepatic activity still evident at 0100 hours. This could be seen in diffu se hepatocellular disease. INTRA-HEPATIC BILE DUCTS: Normal visualization COMMON BILE DUCT: Normal visualization DUODENUM: Duodenum and small bowel activity is seen by 15 minutes GALLBLADDER: Gallbladder was not visualized on the initial 1 hour imaging. Patient was given a 1 mCi booster dose and 3 mg of morphine. Gallbladder not visualized on the delayed images. OTHER: Report called to Dr. Osorio, 1400 hours 10/17/2017 IMPRESSION: Nonvisualization of the gallbladder on immediate and delayed imaging post booster dose a nd morphine TECHNICAL DOCUMENTATION: JOB ID: [id number] [employer]- All Rights Reserved
[2017-10-17] MEDS: MORPHINE SULFATE 10 MG/ML INJ IV PRN ×2 (18:35→23:29)
--- NOTE | 2017-10-17 18:38 | PDOC CONSULTATION ---
Consultation Consult Date: 10/17/17 History of Present Illness Admission Date/PCP: 10/16/17 10:35 DENIZ FARAH History of Present Illness: This is a 52-year-old patient who was admitted yesterday with sudden onset right upper quadrant pain. This started about 2 AM and has continued ever since. She has been having viral-like illness for about 24-48 hours prior to the onset of the pain and had been started on Tamiflu and montelukast. The pain is nonradiating and associated with occasional nausea. She vomited once yesterday after eating a clear liquid diet. On admission her white count, LFTs, and lipase were normal. Initial CT of the abdomen and abdominal ultrasound was unremarkable except for gallstones. None of her imaging studies showed thickening of her gallbladder wall or pericholecystic fluid. Cholecystectomy was suggested on admission which patient declined. She then had a HIDA scan today that showed nonvisualization of the gallbladder. Biliary tree and duodenum were visualized. Her transaminases also became elevated today still with a normal bilirubin and alkaline phosphatase. Past Medical History Cardiac Medical History: Reports: Hypertension Neurological Medical History: Reports: Migraine, Other - Migraine headaches Malignancy Medical History: Reports: Breast Cancer - Right breast , s/p mastectomy Hematology: Reports: Anemia Past Surgical History Past Surgical History: Reports: Mastectomy - Right Social History Smoking Status: Never Smoker Frequency of Alcohol Use: Occasional Hx Recreational Drug Use: No Drugs: None Hx Prescription Drug Abuse: No - Advance Directive Resuscitation Status: Full Code Family History Family History: None Parental Family History Reviewed: No Children Family History Reviewed: NA Sibling(s) Family History Reviewed.: NA Medication/Allergy Home Medications: Azithromycin [Zithromax 250 mg Tablet] 250 mg PO ASDIR 10/16/17 Citalopram Hydrobromide [Celexa 20 mg Tablet] 20 mg PO QHS 10/16/17 Montelukast Sodium [Singulair 10 mg Tablet] 10 mg PO QHS 10/16/17 Oseltamivir Phosphate [Tamiflu 75 mg Capsule] 75 mg PO BID 10/16/17 Tamoxifen Citrate [Nolvadex 10 Mg Tablet] 10 mg PO BID 10/16/17 Topiramate [Trokendi Xr] 25 mg PO QHS 10/16/17 Topiramate [Trokendi Xr] 50 mg PO QHS 01/30/18 Allergies/Adverse Reactions: Sulfa (Sulfonamide Antibiotics) Adverse Reaction (Verified 05/21/14 15:12) Review of Systems All systems: reviewed and no additional remarkable complaints except as stated Physical Exam Vital Signs: Temp Pulse Resp BP Pulse Ox 99.0 F 100 15 144/82 H 99 10/17/17 16:13 10/17/17 16:13 10/17/17 16:13 10/17/17 16:13 10/17/17 16:13 Intake & Output 10/16/17 10/17/17 10/18/17 06:59 06:59 06:59 Intake Total 240 Balance 240 Weight 78.8 kg Exam: General: Patient is alert and looks well. HEENT: There is no pallor or jaundice. PERRLA. Oropharynx normal Respiratory: No chest deformity. No respiratory distress. Chest wall palpitation was unremarkable. Breath sounds were normal Cardiovascular: Heart sounds 1 and 2 normal with no murmurs. Abdominal: Not distended. There is tenderness in the right upper quadrant without guarding or rebound tenderness Liver and spleen not palpable. No ascites demonstrated. Bowel sounds active. Rectal examination was deferred. Extremities: No edema Neurological: Alert and oriented x4. Grossly nonfocal. Normal speech Skin: No significant rash Psychological: Normal affect Results Laboratory Results: 10/17/17 06:41 10/17/17 06:41 10/17/17 10/17/17 10/17/17 06:41 06:41 08:43 WBC 9.4 RBC 5.63 H Hgb 12.2 Hct 38.2 MCV 68 L MCH 21.7 L MCHC 32.0 RDW 14.5 H Plt Count 188 Seg Neutrophils % 72.9 Lymphocytes % 18.9 Monocytes % 7.5 Eosinophils % 0.3 Basophils % 0.4 Absolute Neutrophils 6.9 Absolute Lymphocytes 1.8 Absolute Monocytes 0.7 Absolute Eosinophils 0.0 Absolute Basophils 0.0 Sodium 139.5 Potassium 3.9 Chloride 111 H Carbon Dioxide 25 Anion Gap 5 BUN 10 Creatinine 0.77 Est GFR ( Amer) > 60 Est GFR (Non-Af Amer) > 60 Glucose 127 H Calcium 9.4 Total Bilirubin 0.7 AST 160 H ALT 132 H Alkaline Phosphatase 64 Total Protein 6.6 Albumin 3.7 Lipase 81.1 Impressions: Chest X-Ray 10/16/17 07:10 IMPRESSION: No acute cardiopulmonary findings. Abdomen/Pelvis CT 10/16/17 08:07 IMPRESSION: The gallbladder appears mildly distended and contains a combination of biliary sludge and small gallstones. No gallbladder wall thickening or pericholecystic fluid is identified. Other findings as noted above Abdomen Ultrasound 10/16/17 10:25 IMPRESSION: Echogenic liver from diffuse hepatocellular disease. Multiple stones in the gallbladder, no gallbladder wall thickening or pericholecystic fluid. Hepatobiliary Scan [facility] 10/17/17 00:00 IMPRESSION: Nonvisualization of the gallbladder on immediate and delayed imaging post booster dose and morphine Assessment & Plan - Diagnosis (1) Right upper quadrant pain Is this a current diagnosis for this admission?: Yes Plan: She presented with a sudden onset abdominal pain associated with some nausea and vomiting once. Her initial ultrasound and CAT scan showed gallstones but no evidence for cholecystitis but her HIDA scan was abnormal consistent with cholecystitis. Ultrasound did show a normal portal blood flow. The need for cholecystectomy was explained to the patient and she is now in agreement. She was started on antibiotics earlier on today (2) Abnormal liver function test Is this a current diagnosis for this admission?: Yes Plan: Her LFTs were normal on admission but her transaminases are now elevated. This may be related to cholecystitis though she also has fatty liver. She has no evidence for biliary dilation on imaging studies. Intraoperative cholangiogram could be considered (3) Gallstones Is this a current diagnosis for this admission?: Yes (4) Acute cholecystitis Is this a current diagnosis for this admission?: Yes
[2017-10-17] MEDS ORDERED: ENALAPRILAT DIHYDRATE INJ/PF 2.5 MG/2 ML SDV IV PRN (19:51)
--- NOTE | 2017-10-17 19:53 | PDOC CONSULTATION ---
Consultation Consult Date: 10/17/17 Consult reason:: Medical management of morbidities History of Present Illness Admission Date/PCP: 10/16/17 10:35 DENIZ FARAH History of Present Illness: Asked to see this 52 years old female patient known to my practice for further medical management. She presented to the ED with abrupt onset of right upper quadrant abdominal pain with associated nausea, vomiting and chills. Her initial evaluation in the ED was suggestive of hepatobiliary disease process with abdominal ultrasound and CT abdomen and pelvis showing multiple gallstones without evidence of cholecystitis. She was seen by the surgicalist police officer crime prevention with recommendation for surgical intervention. Her subsequent HIDA scan did suggest cholecystitis. Past Medical History Cardiac Medical History: Reports: Hypertension Neurological Medical History: Reports: Migraine, Other - Migraine headaches Malignancy Medical History: Reports: Breast Cancer - Right breast , s/p mastectomy Hematology: Reports: Anemia Past Surgical History Past Surgical History: Reports: Mastectomy - Right Social History Smoking Status: Never Smoker Frequency of Alcohol Use: Occasional Hx Recreational Drug Use: No Drugs: None Hx Prescription Drug Abuse: No - Advance Directive Resuscitation Status: Full Code Family History Family History: None Parental Family History Reviewed: Yes Children Family History Reviewed: Yes Sibling(s) Family History Reviewed.: Yes Medication/Allergy Home Medications: Azithromycin [Zithromax 250 mg Tablet] 250 mg PO ASDIR 10/16/17 Citalopram Hydrobromide [Celexa 20 mg Tablet] 20 mg PO QHS 10/16/17 Montelukast Sodium [Singulair 10 mg Tablet] 10 mg PO QHS 10/16/17 Oseltamivir Phosphate [Tamiflu 75 mg Capsule] 75 mg PO BID 10/16/17 Tamoxifen Citrate [Nolvadex 10 Mg Tablet] 10 mg PO BID 10/16/17 Topiramate [Trokendi Xr] 25 mg PO QHS 10/16/17 Topiramate [Trokendi Xr] 50 mg PO QHS 10/16/17 Allergies/Adverse Reactions: Sulfa (Sulfonamide Antibiotics) Adverse Reaction (Verified 05/21/14 15:12) Review of Systems Constitutional: PRESENT: chills Eyes: ABSENT: visual disturbances Ears: ABSENT: hearing changes Nose, Mouth, and Throat: ABSENT: as per HPI, headache(s), mouth pain, sore throat, vertigo, other Cardiovascular: ABSENT: chest pain, dyspnea on exertion, edema, orthropnea, palpitations Respiratory: ABSENT: cough, hemoptysis Gastrointestinal: PRESENT: abdominal pain, nausea, vomiting Genitourinary: ABSENT: dysuria, hematuria Musculoskeletal: ABSENT: joint swelling Integumentary: ABSENT: rash, wounds Neurological: ABSENT: abnormal gait, abnormal speech, confusion, dizziness, focal weakness, syncope Psychiatric: ABSENT: anxiety, depression, homidical ideation, suicidal ideation Hematologic/Lymphatic: ABSENT: easy bleeding, easy bruising, lymphadenopathy Allergic/Immunologic: ABSENT: seasonal rhinorrhea Physical Exam Vital Signs: Temp Pulse Resp BP Pulse Ox 99.0 F 100 15 144/82 H 99 10/17/17 16:13 10/17/17 16:13 10/17/17 16:13 10/17/17 16:13 10/17/17 16:13 Intake & Output 10/16/17 10/17/17 10/18/17 06:59 06:59 06:59 Intake Total 240 Balance 240 Weight 78.8 kg General appearance: PRESENT: no acute distress, obese Head exam: PRESENT: atraumatic, normocephalic Eye exam: PRESENT: conjunctiva pink, EOMI, PERRLA. ABSENT: scleral icterus Mouth exam: PRESENT: moist Respiratory exam: PRESENT: clear to auscultation pardeep Cardiovascular exam: PRESENT: RRR. ABSENT: diastolic murmur, rubs, systolic murmur Vascular exam: PRESENT: normal capillary refill. ABSENT: pallor GI/Abdominal exam: PRESENT: guarding, normal bowel sounds, tenderness - RUQ. ABSENT: ascites, organolmegaly, rebound Rectal exam: PRESENT: deferred Extremities exam: ABSENT: pedal edema Musculoskeletal exam: PRESENT: normal inspection Neurological exam: PRESENT: alert, awake, oriented to person, oriented to place , oriented to time, oriented to situation, CN II-XII grossly intact. ABSENT: motor sensory deficit Psychiatric exam: PRESENT: appropriate affect, normal mood. ABSENT: homicidal ideation, suicidal ideation Skin exam: PRESENT: dry, intact, warm. ABSENT: cyanosis, rash Results Laboratory Results: 10/17/17 06:41 10/17/17 06:41 10/17/17 10/17/17 10/17/17 06:41 06:41 08:43 WBC 9.4 RBC 5.63 H Hgb 12.2 Hct 38.2 MCV 68 L MCH 21.7 L MCHC 32.0 RDW 14.5 H Plt Count 188 Seg Neutrophils % 72.9 Lymphocytes % 18.9 Monocytes % 7.5 Eosinophils % 0.3 Basophils % 0.4 Absolute Neutrophils 6.9 Absolute Lymphocytes 1.8 Absolute Monocytes 0.7 Absolute Eosinophils 0.0 Absolute Basophils 0.0 Sodium 139.5 Potassium 3.9 Chloride 111 H Carbon Dioxide 25 Anion Gap 5 BUN 10 Creatinine 0.77 Est GFR ( Amer) > 60 Est GFR (Non-Af Amer) > 60 Glucose 127 H Calcium 9.4 Total Bilirubin 0.7 AST 160 H ALT 132 H Alkaline Phosphatase 64 Total Protein 6.6 Albumin 3.7 Lipase 81.1 Impressions: Chest X-Ray 10/16/17 07:10 IMPRESSION: No acute cardiopulmonary findings. Abdomen/Pelvis CT 10/16/17 08:07 IMPRESSION: The gallbladder appears mildly distended and contains a combination of biliary sludge and small gallstones. No gallbladder wall thickening or pericholecystic fluid is identified. Other findings as noted above Abdomen Ultrasound 10/16/17 10:25 IMPRESSION: Echogenic liver from diffuse hepatocellular disease. Multiple stones in the gallbladder, no gallbladder wall thickening or pericholecystic fluid. Hepatobiliary Scan Nuclear Medicine 10/17/17 00:00 IMPRESSION: Nonvisualization of the gallbladder on immediate and delayed imaging post booster dose and morphine Assessment & Plan - Diagnosis (1) Cholelithiasis with acute cholecystitis Qualifiers: Cholelithiasis location: bile duct Is this a current diagnosis for this admission?: Yes Plan: Agreed with current antibiotic therapy with need for surgical intervention. She is medically cleared for proposed surgical intervention. (2) Abnormal liver function test Is this a current diagnosis for this admission?: Yes Plan: Probably related to her ongoing pathologic process. Thee is history of fatty liver disease. Obtain her lipid panel in AM. (3) HTN (hypertension) Qualifiers: Hypertension type: essential hypertension Qualified Code(s): I10 - Essential (primary) hypertension Is this a current diagnosis for this admission?: Yes Plan: I will start on IV Vasotec 2.5mg q6 hours prn for blood pressure > 140/90 mmHg. Elevation may be due to pain or IV fluid infusion. She has been off anti hypertensive medication for awhile. Obtain 12 lead EKG. (4) History of cancer of right breast Is this a current diagnosis for this admission?: Yes Plan: Monitor for any abnormality to suggest worsening condition. - Time Time Spent: 50 to 70 Minutes Medications reviewed and adjusted accordingly: Yes Anticipated discharge: Home Within: Other - Inpatient Certification Based on my medical assessment, after consideration of the patient's comorbidities, presenting symptoms, or acuity I expect that the services needed warrant INPATIENT care.: Yes I certify that my determination is in accordance with my understanding of Medicare's requirements for reasonable and necessary INPATIENT services [42 CFR 412.3e].: Yes Medical Necessity: Need Close Monitoring Due to Risk of Patient Decompensation, Need For IV Fluids, Need for IV Antibiotics, Need for Surgery, Risk of Complication if Not Cared For in Hospital Post Hospital Care: D/C Marketing Communications Manager Documentation - Plan Summary Plan Summary: See input as listed above and physician orders.
[2017-10-17] MEDS: ZOLPIDEM TARTRATE 5 MG TABLET PO PRN (21:54)
[2017-10-18] MEDS: POTASSI CL 20 MEQ/D5-1/2NS 1L 1,000 ML IV PRN ×2 (02:03→11:03)
[2017-10-18] MEDS: CEFAZOLIN 1 GM/D5W RTU 1 GM/50 ML RTUPB IV SCH ×4 (02:03→20:15)
--- NOTE | 2017-10-18 07:31 | EKG REPORT ---
SEVERITY:- BORDERLINE ECG - SINUS TACHYCARDIA PROBABLE LEFT ATRIAL ABNORMALITY BORDERLINE T ABNORMALITIES, INFERIOR LEADS : Confirmed by: Bob Jurado MD 18-Oct-2017 07:31:04
[2017-10-18 08:02] LABS: ABSOLUTE LYMPHOCYTES (AUTO) 1.1 10^3/uL (0.5-4.7); ABSOLUTE MONOCYTES (AUTO) 0.9 10^3/uL (0.1-1.4); BASOPHILS % (AUTO) 0.3 % (0-2); EOSINOPHILS % (AUTO) 0.2 % (0-6); HEMATOCRIT 35.6 % (36.0-47.0); HEMOGLOBIN 11.5 g/dL (12.0-15.5); LYMPHOCYTES % (AUTO) 11.3 % (13-45); MEAN CORPUSCULAR HEMOGLOBIN 22.1 pg (27.0-33.4); MEAN CORPUSCULAR HGB CONC 32.2 g/dL (32.0-36.0); MEAN CORPUSCULAR VOLUME 69 fl (80-97); MONOCYTES % (AUTO) 8.7 % (3-13); PLATELET COUNT 186 10^3/uL (150-450); RED CELL DISTRIBUTION WIDTH 14.6 % (11.5-14.0); SEGMENTED NEUTROPHILS % (AUTO) 79.5 % (42-78); TOTAL CELLS COUNTED % (AUTO) 100 %; WHITE BLOOD COUNT 10.1 10^3/uL (4.0-10.5)
[2017-10-18] MEDS: MORPHINE SULFATE 10 MG/ML INJ IV PRN (08:02)
[2017-10-18 08:12] LABS: ALANINE AMINOTRANSFERASE 108 U/L (9-52); ALBUMIN 3.5 g/dL (3.5-5.0); ALKALINE PHOSPHATASE 66 U/L (38-126); ASPARTATE AMINO TRANSFERASE 55 U/L (14-36); BILIRUBIN,TOTAL 0.3 mg/dL (0.2-1.3); TOTAL PROTEIN 6.2 g/dL (6.3-8.2)
--- NOTE | 2017-10-18 08:49 | PDOC PROGRESS REPORT ---
Subjective Progress Note for:: 10/18/17 Subjective:: Still having epigastric and right upper quadrant abdominal pain. Reason For Visit: SYMTOMATIC CHOLELITHIASIS Physical Exam Vital Signs: Temp Pulse Resp BP Pulse Ox 99.6 F 98 14 130/82 H 99 10/18/17 03:35 10/18/17 03:35 10/18/17 03:35 10/18/17 03:35 10/18/17 03:35 Intake & Output 10/17/17 10/18/17 10/19/17 06:59 06:59 06:59 Intake Total 240 Balance 240 Weight 78.8 kg General appearance: PRESENT: no acute distress, cooperative Eye exam: PRESENT: conjunctiva pink Respiratory exam: PRESENT: clear to auscultation pardeep Cardiovascular exam: PRESENT: RRR GI/Abdominal exam: PRESENT: other - Soft, nondistended, epigastric and right upper quadrant abdominal tenderness. Neurological exam: PRESENT: alert, awake Results Laboratory Results: 10/18/17 07:35 10/17/17 06:41 10/17/17 10/18/17 10/18/17 08:43 07:35 07:35 WBC 10.1 RBC 5.20 Hgb 11.5 L Hct 35.6 L MCV 69 L MCH 22.1 L MCHC 32.2 RDW 14.6 H Plt Count 186 Seg Neutrophils % 79.5 H Lymphocytes % 11.3 L Monocytes % 8.7 Eosinophils % 0.2 Basophils % 0.3 Absolute Neutrophils 8.0 Absolute Lymphocytes 1.1 Absolute Monocytes 0.9 Absolute Eosinophils 0.0 Absolute Basophils 0.0 Total Bilirubin 0.3 AST 55 H ALT 108 H Alkaline Phosphatase 66 Total Protein 6.2 L Albumin 3.5 Lipase 81.1 Impressions: Chest X-Ray 10/16/17 07:10 IMPRESSION: No acute cardiopulmonary findings. Abdomen/Pelvis CT 10/16/17 08:07 IMPRESSION: The gallbladder appears mildly distended and contains a combination of biliary sludge and small gallstones. No gallbladder wall thickening or pericholecystic fluid is identified. Other findings as noted above Abdomen Ultrasound 10/16/17 10:25 IMPRESSION: Echogenic liver from diffuse hepatocellular disease. Multiple stones in the gallbladder, no gallbladder wall thickening or pericholecystic fluid. Hepatobiliary Scan Nuclear Medicine 10/17/17 00:00 IMPRESSION: Nonvisualization of the gallbladder on immediate and delayed imaging post booster dose and morphine Assessment & Plan - Diagnosis (1) Acute cholecystitis Is this a current diagnosis for this admission?: Yes Plan: We will plan laparoscopic cholecystectomy. Possible intraoperative cholangiogram if the cystic duct is patent in light of elevated liver function studies. However I suspect that the elevations of her transaminases are due to the marked inflammation of her gallbladder that has been obstructed now for 3 days. I have had a discussion with the patient concerning the risk and benefits of the surgery including risk of conversion to an open procedure especially in light of the likely inflammatory changes her gallbladder will have , bleeding, adjacent structure injury such as bile duct injury and postcholecystectomy diarrhea. Patient understands and agrees to proceed.
[2017-10-18] MEDS ORDERED: PHENYLEPHRINE HCL INJ/PF 10 MG/1 ML SDV ONE (09:36)
[2017-10-18] MEDS ORDERED: DEXAMETHASONE SOD PHOSPHATE INJ 4 MG/1 ML VIAL ONE (09:36)
[2017-10-18] MEDS ORDERED: KETOROLAC TROMETHAMINE 60 MG/2 ML SDV ONE (09:36)
[2017-10-18] MEDS ORDERED: ROCURONIUM BROMIDE INJ 50 MG/5 ML VIAL IV ONE (09:36)
[2017-10-18] MEDS ORDERED: METOCLOPRAMIDE HCL INJ/PF 10 MG/2 ML SDV ONE (09:36)
[2017-10-18] MEDS ORDERED: SUCCINYLCHOLINE CHLORIDE INJ 200 MG/10 ML VIAL ONE (09:36)
[2017-10-18] MEDS ORDERED: GLYCOPYRROLATE INJ 0.4 MG/2 ML VIAL ONE (09:36)
[2017-10-18] MEDS ORDERED: LIDOCAINE 2% INJ-PF (20 MG/ML) 2 ML AMPUL ONE (09:36)
[2017-10-18] MEDS ORDERED: NEOSTIGMINE METHYLSULFATE 10 MG/10 ML VIAL ONE (09:36)
[2017-10-18] MEDS ORDERED: ONDANSETRON HCL INJ/PF 4 MG/2 ML SDV ONE (09:36)
[2017-10-18] MEDS: ENOXAPARIN SODIUM INJ 30 MG/0.3 ML DISP.SYRIN SUBCUT SCH (10:11)
[2017-10-18] MEDS ORDERED: BUPIVACAINE HCL 0.25 % INJ/PF (2.5 MG/1 ML) 30 ML VIAL ONE (13:19)
[2017-10-18] MEDS ORDERED: HYDROMORPHONE HCL INJ/PF 2 MG/ML AMPULE ONE (13:25)
[2017-10-18] MEDS ORDERED: PROPOFOL INJ 200 MG/20 ML VIAL IV ONE (13:25)
[2017-10-18] MEDS ORDERED: ACETAMINOPHEN 100 ML IV ONE (13:25)
[2017-10-18] MEDS ORDERED: MIDAZOLAM 2 MG/2 ML INJ ONE (13:25)
[2017-10-18] MEDS ORDERED: EPHEDRINE SULFATE INJ 50 MG/1 ML AMPULE ONE (13:25)
[2017-10-18] MEDS ORDERED: MEPERIDINE HCL/PF INJ 25 MG/1 ML DISP.SYRIN IV PRN (14:12)
[2017-10-18] MEDS ORDERED: DIPHENHYDRAMINE HCL 50 MG/ML VIAL IV PRN (14:12)
[2017-10-18] MEDS ORDERED: OXYCODONE-ACETAMINOPHEN 5-325 MG TABLET PO PRN ×2 (14:12)
[2017-10-18] MEDS ORDERED: MORPHINE SULFATE 10 MG/ML INJ IV PRN ×2 (14:12→15:17)
[2017-10-18] MEDS ORDERED: PROMETHAZINE HCL INJ 25 MG/1 ML VIAL IV PRN ×2 (14:12)
[2017-10-18] MEDS ORDERED: ONDANSETRON HCL INJ/PF 4 MG/2 ML SDV IV PRN (14:12)
[2017-10-18] MEDS ORDERED: FENTANYL CITRATE INJ/PF 100 MCG/2 ML AMPUL IV PRN ×3 (14:12)
[2017-10-18] MEDS ORDERED: FENTANYL CITRATE INJ/PF 100 MCG/2 ML AMPUL ONE ×2 (14:19→15:50)
[2017-10-18] MEDS ORDERED: CEFAZOLIN INJ 1 GM VIAL ONE (14:42)
--- NOTE | 2017-10-18 15:14 | Operative Report ---
Operative Report DATE OF SURGERY: 10/18/17 PREOPERATIVE DIAGNOSIS: Acute cholecystitis POSTOPERATIVE DIAGNOSIS: Acute hemorrhagic cholecystitis OPERATION: Laparoscopic cholecystectomy SURGEON: ANGLE HALL ANESTHESIA: GA TISSUE REMOVED OR ALTERED: Gallbladder COMPLICATIONS: None ESTIMATED BLOOD LOSS: 50 cc INTRAOPERATIVE FINDINGS: Markedly distended gallbladder with thickened gallbladder wall with edema and hemorrhagic appearance to the gallbladder wall PROCEDURE: Informed consent was obtained. Patient was brought to the operating room placed operating table in supine position. After satisfactory induction of general anesthesia, patient's abdomen was prepped and draped in usual sterile fashion. A supraumbilical midline incision was made and dissection carried down to the fascia the peritoneal cavity entered without difficulty. Roque trocar was inserted. Pneumoperitoneum produced good patient toleration. 5 mm trocar was placed in the subxiphoid location.Two 5 mm trochars were placed in the right subcostal location. The gallbladder was markedly distended and its wall was edematous and thickened and appeared hemorrhagic. The gallbladder was decompressed with a decompression needle yielding cloudy fluid. The gallbladder was grasped and retracted cephalad over the dome of the liver. The infundibulum of the gallbladder was grasped retracted laterally and inferiorly thus exposing calot's triangle. The cystic duct gallbladder junction was clearly identified. The cystic duct appeared short. With the obvious acute hemorrhagic cholecystitis with fragile tissue and the short cystic duct, I did not attempt an intraoperative cholangiogram. The cystic duct was clipped and divided. Cystic artery was likewise taken. The gallbladder was taken off the gallbladder bed using the hook electrocautery technique. The gallbladder was removed intact other than the small puncture hole from the decompression needle , with an Endobag through the Roque trocar site fascial defect. The operative field was copiously irrigated and irrigant aspirated out. Irrigation fluid was perfectly clear at the end of the case. Hemostasis appeared excellent. All trochars were removed under the direct vision a laparoscope to ensure hemostasis. The Roque trocar site fascial defect was closed with interrupted Vicryl sutures. All skin incisions were closed with subcuticular interrupted Monocryl sutures. Marcaine was injected at the port sites. Patient tolerated procedure well no apparent complications and was taken to the recovery area in stable condition.
[2017-10-18] MEDS ORDERED: AZITHROMYCIN 250 MG TABLET PO SCH (15:30)
[2017-10-18] MEDS ORDERED: OSELTAMIVIR PHOSPHATE 75 MG CAPSULE PO SCH (18:00)
[2017-10-18] MEDS ORDERED: TAMOXIFEN CITRATE 10 MG TABLET PO SCH (18:00)
[2017-10-18] MEDS: OXYCODONE-ACETAMINOPHEN 5-325 MG TABLET PO PRN (19:58)
--- NOTE | 2017-10-18 20:00 | PDOC PROGRESS REPORT ---
Subjective Progress Note for:: 10/18/17 Subjective:: Post operative day #1 doing very well and tolerating liquid diet. Nausea but no vomiting. Pain fairly controlled. Blood pressure in good range. No fever or chills. Reason For Visit: SYMTOMATIC CHOLELITHIASIS Physical Exam Vital Signs: Temp Pulse Resp BP Pulse Ox 98.9 F 89 18 121/66 100 10/18/17 18:10 10/18/17 18:10 10/18/17 18:10 10/18/17 18:10 10/18/17 18:10 Intake & Output 10/17/17 10/18/17 10/19/17 06:59 06:59 06:59 Intake Total 240 2100 Output Total 1110 Balance 240 990 Weight 78.8 kg 78.2 kg General appearance: PRESENT: no acute distress, well-developed, well-nourished Head exam: PRESENT: atraumatic, normocephalic Mouth exam: PRESENT: moist Respiratory exam: PRESENT: clear to auscultation pardeep Cardiovascular exam: PRESENT: RRR. ABSENT: diastolic murmur, rubs, systolic murmur GI/Abdominal exam: PRESENT: normal bowel sounds, soft. ABSENT: distended, guarding, mass, organolmegaly, rebound, tenderness Extremities exam: ABSENT: pedal edema Musculoskeletal exam: PRESENT: normal inspection Neurological exam: PRESENT: alert, awake, oriented to person, oriented to place , oriented to time, oriented to situation, CN II-XII grossly intact. ABSENT: motor sensory deficit Psychiatric exam: PRESENT: appropriate affect, normal mood. ABSENT: homicidal ideation, suicidal ideation Skin exam: PRESENT: dry, warm, other - op sites satisfactory. Results Laboratory Results: 10/18/17 07:35 10/17/17 06:41 10/18/17 10/18/17 07:35 07:35 WBC 10.1 RBC 5.20 Hgb 11.5 L Hct 35.6 L MCV 69 L MCH 22.1 L MCHC 32.2 RDW 14.6 H Plt Count 186 Seg Neutrophils % 79.5 H Lymphocytes % 11.3 L Monocytes % 8.7 Eosinophils % 0.2 Basophils % 0.3 Absolute Neutrophils 8.0 Absolute Lymphocytes 1.1 Absolute Monocytes 0.9 Absolute Eosinophils 0.0 Absolute Basophils 0.0 Total Bilirubin 0.3 AST 55 H ALT 108 H Alkaline Phosphatase 66 Total Protein 6.2 L Albumin 3.5 Impressions: Chest X-Ray 10/16/17 07:10 IMPRESSION: No acute cardiopulmonary findings. Abdomen/Pelvis CT 10/16/17 08:07 IMPRESSION: The gallbladder appears mildly distended and contains a combination of biliary sludge and small gallstones. No gallbladder wall thickening or pericholecystic fluid is identified. Other findings as noted above Abdomen Ultrasound 10/16/17 10:25 IMPRESSION: Echogenic liver from diffuse hepatocellular disease. Multiple stones in the gallbladder, no gallbladder wall thickening or pericholecystic fluid. Hepatobiliary Scan Nuclear Medicine 10/17/17 00:00 IMPRESSION: Nonvisualization of the gallbladder on immediate and delayed imaging post booster dose and morphine Assessment & Plan - Diagnosis (1) Cholelithiasis with acute cholecystitis Qualifiers: Cholelithiasis location: bile duct Is this a current diagnosis for this admission?: Yes (2) Abnormal liver function test Is this a current diagnosis for this admission?: Yes (3) HTN (hypertension) Qualifiers: Hypertension type: essential hypertension Qualified Code(s): I10 - Essential (primary) hypertension Is this a current diagnosis for this admission?: Yes (4) History of cancer of right breast Is this a current diagnosis for this admission?: Yes - Time Time Spent with patient: 25-34 minutes Medications reviewed and adjusted accordingly: Yes Anticipated discharge: Home Within: within 24 hours - Inpatient Certification Based on my medical assessment, after consideration of the patient's comorbidities, presenting symptoms, or acuity I expect that the services needed warrant INPATIENT care.: Yes I certify that my determination is in accordance with my understanding of Medicare's requirements for reasonable and necessary INPATIENT services [42 CFR 412.3e].: Yes Medical Necessity: Need Close Monitoring Due to Risk of Patient Decompensation, Need For IV Fluids, Need for IV Antibiotics, Need for Surgery, Risk of Complication if Not Cared For in Hospital Post Hospital Care: D/C Chainstitch Binder Documentation - Plan Summary Plan Summary: Agreed with current management and possible discharge home in the next 24 hours. Obtain CBC with diff and CMP in AM.
[2017-10-18] MEDS ORDERED: TOPIRAMATE 25 MG PO SCH (22:00)
[2017-10-18] MEDS ORDERED: MONTELUKAST SODIUM 10 MG TABLET PO SCH (22:00)
[2017-10-18] MEDS ORDERED: (PENDING PHARMACY ID) (Topiramate [Trokendi Xr] 50 MG) PO SCH (22:00)
[2017-10-18] MEDS ORDERED: CITALOPRAM HYDROBROMIDE 20 MG TABLET PO SCH (22:00)
[2017-10-18] MEDS: ZOLPIDEM TARTRATE 5 MG TABLET PO PRN (23:03)
[2017-10-19] MEDS: CEFAZOLIN 1 GM/D5W RTU 1 GM/50 ML RTUPB IV SCH ×2 (02:37→08:19)
[2017-10-19] MEDS: OXYCODONE-ACETAMINOPHEN 5-325 MG TABLET PO PRN ×3 (02:37→12:28)
[2017-10-19 07:14] LABS: ABSOLUTE LYMPHOCYTES (AUTO) 1.2 10^3/uL (0.5-4.7); ABSOLUTE MONOCYTES (AUTO) 0.8 10^3/uL (0.1-1.4); ABSOLUTE NEUT (AUTO) 6.6 10^3/uL (1.7-8.2); BASOPHILS % (AUTO) 0.5 % (0-2); EOSINOPHILS % (AUTO) 0.3 % (0-6); HEMOGLOBIN 10.7 g/dL (12.0-15.5); LYMPHOCYTES % (AUTO) 13.9 % (13-45); MEAN CORPUSCULAR HEMOGLOBIN 21.9 pg (27.0-33.4); MEAN CORPUSCULAR HGB CONC 32.3 g/dL (32.0-36.0); MEAN CORPUSCULAR VOLUME 68 fl (80-97); MONOCYTES % (AUTO) 9.4 % (3-13); PLATELET COUNT 164 10^3/uL (150-450); RED BLOOD COUNT 4.88 10^6/uL (3.72-5.28); RED CELL DISTRIBUTION WIDTH 14.3 % (11.5-14.0); SEGMENTED NEUTROPHILS % (AUTO) 75.9 % (42-78); TOTAL CELLS COUNTED % (AUTO) 100 %; WHITE BLOOD COUNT 8.7 10^3/uL (4.0-10.5)
[2017-10-19 07:21] LABS: ALANINE AMINOTRANSFERASE 88 U/L (9-52); ALBUMIN 3.2 g/dL (3.5-5.0); ALKALINE PHOSPHATASE 63 U/L (38-126); ANION GAP 7 (5-19); ASPARTATE AMINO TRANSFERASE 50 U/L (14-36); BILIRUBIN,DIRECT 0.1 mg/dL (0.0-0.4); BILIRUBIN,TOTAL 0.3 mg/dL (0.2-1.3); BLOOD UREA NITROGEN 12 mg/dL (7-20); CALCIUM 9.2 mg/dL (8.4-10.2); CARBON DIOXIDE 26 mmol/L (22-30); CHLORIDE 108 mmol/L (98-107); GLUCOSE 92 mg/dL (75-110); POTASSIUM 4.1 mmol/L (3.6-5.0); SODIUM 140.7 mmol/L (137-145); TOTAL PROTEIN 6.1 g/dL (6.3-8.2)
[2017-10-19] MEDS: ENOXAPARIN SODIUM INJ 30 MG/0.3 ML DISP.SYRIN SUBCUT SCH (12:47)
--- NOTE | 2017-10-19 15:26 | PDOC DISCHARGE SUMMARY ---
Discharge Summary (SDC) - Discharge Final Diagnosis: Gangrenous Cholecystitis Date of Surgery: 10/18/17 Condition: Good Prescriptions: Ondansetron [Zofran Odt 4 mg Tablet] 4 mg PO Q4HP PRN #20 tab.rapdis PRN Reason: For Nausea/Vomiting Referrals: [facility] [Provider Group] DENIZ FARAH MD [Primary Care Provider] - Follow up as needed Respiratory Treatments at Home: Incentive Spirometer Discharge Activity: No Lifting Over 10 Pounds, No tub bath, Walk Frequently Home Care Assistance: None Needed Report the Following to Your Physician Immediately: Nausea, Vomiting, Increase in Pain, Yellow Skin, Fever over 101 Degrees, Unusual Bleeding, Swelling
--- NOTE | 2017-10-19 15:33 | PDOC DISCHARGE SUMMARY ---
General - Admit/Disc Date/PCP Admission Date/Primary Care Provider: 10/16/17 10:35 DENIZ FARAH Discharge Date: 10/19/17 - Discharge Diagnosis (1) Acute cholecystitis Is this a current diagnosis for this admission?: Yes - Additional Information Resuscitation Status: Full Code Discharge Diet: As Tolerated, Regular Discharge Activity: No Lifting Over 10 Pounds, No tub bath, Walk Frequently Prescriptions: Ondansetron [Zofran Odt 4 mg Tablet] 4 mg PO Q4HP PRN #20 tab.rapdis PRN Reason: For Nausea/Vomiting Home Medications: Azithromycin [Zithromax 250 mg Tablet] 250 mg PO ASDIR 10/16/17 Citalopram Hydrobromide [Celexa 20 mg Tablet] 20 mg PO QHS 10/16/17 Montelukast Sodium [Singulair 10 mg Tablet] 10 mg PO QHS 10/16/17 Oseltamivir Phosphate [Tamiflu 75 mg Capsule] 75 mg PO BID 10/16/17 Tamoxifen Citrate [Nolvadex 10 Mg Tablet] 10 mg PO BID 10/16/17 Topiramate [Trokendi Xr] 25 mg PO QHS 10/16/17 Topiramate [Trokendi Xr] 50 mg PO QHS 10/16/17 Acetaminophen [Tylenol 325 mg Tablet] 650 mg PO Q4HP PRN tablet 10/19/17 Ondansetron [Zofran Odt 4 mg Tablet] 4 mg PO Q4HP PRN #20 tab.rapdis 10/19/17 History of Present Illness History of Present Illness: KIRSTIE BENOIT is a 52 year old female who was admitted for acute cholecystitis. Hospital Course Hospital Course: The patient had a laparoscopic cholecystectomy yesterday by Dr Meza for gangrenous cholecystitis. she is doing well today, tolerating a regular diet, is ambulant and is ready to go home. Physical Exam Vital Signs: Temp Pulse Resp BP Pulse Ox 98.0 F 80 18 111/54 L 98 10/19/17 08:42 10/19/17 08:42 10/19/17 03:52 10/19/17 08:42 10/19/17 08:42 Intake & Output 10/18/17 10/19/17 10/20/17 06:59 06:59 06:59 Intake Total 2500 Output Total 1110 Balance 1390 Weight 78.2 kg 80.3 kg General appearance: PRESENT: no acute distress Head exam: PRESENT: normocephalic Eye exam: PRESENT: conjunctiva pink, EOMI, PERRLA Ear exam: PRESENT: normal external ear exam Respiratory exam: PRESENT: clear to auscultation pardeep Cardiovascular exam: PRESENT: RRR, +S1, +S2 GI/Abdominal exam: PRESENT: soft, other - incisions are clean and dry Neurological exam: PRESENT: alert, awake, oriented to person, oriented to place , oriented to time, oriented to situation, CN II-XII grossly intact Results Laboratory Results: 10/19/17 06:18 10/19/17 06:18 10/19/17 10/19/17 06:18 06:18 WBC 8.7 RBC 4.88 Hgb 10.7 L Hct 33.0 L MCV 68 L MCH 21.9 L MCHC 32.3 RDW 14.3 H Plt Count 164 Seg Neutrophils % 75.9 Lymphocytes % 13.9 Monocytes % 9.4 Eosinophils % 0.3 Basophils % 0.5 Absolute Neutrophils 6.6 Absolute Lymphocytes 1.2 Absolute Monocytes 0.8 Absolute Eosinophils 0.0 Absolute Basophils 0.0 Sodium 140.7 Potassium 4.1 Chloride 108 H Carbon Dioxide 26 Anion Gap 7 BUN 12 Creatinine 0.68 Est GFR ( Amer) > 60 Est GFR (Non-Af Amer) > 60 Glucose 92 Calcium 9.2 Total Bilirubin 0.3 AST 50 H ALT 88 H Alkaline Phosphatase 63 Total Protein 6.1 L Albumin 3.2 L Impressions: Chest X-Ray 10/16/17 07:10 IMPRESSION: No acute cardiopulmonary findings. Abdomen/Pelvis CT 10/16/17 08:07 IMPRESSION: The gallbladder appears mildly distended and contains a combination of biliary sludge and small gallstones. No gallbladder wall thickening or pericholecystic fluid is identified. Other findings as noted above Abdomen Ultrasound 10/16/17 10:25 IMPRESSION: Echogenic liver from diffuse hepatocellular disease. Multiple stones in the gallbladder, no gallbladder wall thickening or pericholecystic fluid. Hepatobiliary Scan Nuclear Medicine 10/17/17 00:00 IMPRESSION: Nonvisualization of the gallbladder on immediate and delayed imaging post booster dose and morphine Plan Discharge Plan: The patient is discharged home today. To f/u with Dr Meza and her PCP. Time Spent: Greater than 30 Minutes
[2017-10-19 16:54] VITALS: BP 121/66
== END 2017-10-19 17:35 | disposition home or self-care (01) ==
LOC: ER 06:33 → INTOOBSV 10:35 → EH 10:35 → 2S 12:30
PROVIDERS: ATTEND Surgery
PROC: 0FT44ZZ Resection of Gallbladder, Percutaneous Endoscopic Approach (ICD-10-PCS; principal; 2017-10-18 14:00)
DX: K80.12 Calculus of gallbladder with acute and chronic cholecystitis without obstruction (principal); D76.3 Other histiocytosis syndromes; I10 Essential (primary) hypertension; G43.909 Migraine, unspecified, not intractable, without status migrainosus; L92.8 Other granulomatous disorders of the skin and subcutaneous tissue; Z85.3 Personal history of malignant neoplasm of breast; Z90.11 Acquired absence of right breast and nipple; Z79.899 Other long term (current) drug therapy
CPT/HCPCS: 99285; 96374; 96375; 36415 ×4; 83690 ×2; 85025 ×4; 80076 ×2; 80048; 80053 ×2; 81001; 84484; 87804; 88304 ×2; 71045; 76705; 78226; 74177; 93005; 93010; 47562; G0378 ×4; A9537; J2250; J0690 ×4; J3490 ×2; J1100; J1885 ×2; J3010; J2765; J2270 ×3; J1170; J2370; J3480 ×3; J2550; J0330; J2405 ×2; J1650 ×3; J2704; J0131; Q9969; 790

== ENCOUNTER → 2017-10-29 | Outpatient (CLI) | payer BC, OTHER ==
[2017-10-29 12:26] LABS: ABSOLUTE BASOPHILS # (AUTO) 0.1 10^3/uL (0.0-0.2); ABSOLUTE EOSINOPHILS # (AUTO) 0.1 10^3/uL (0.0-0.6); ABSOLUTE LYMPHOCYTES (AUTO) 2.5 10^3/uL (0.5-4.7); ABSOLUTE MONOCYTES (AUTO) 0.5 10^3/uL (0.1-1.4); ABSOLUTE NEUT (AUTO) 3.2 10^3/uL (1.7-8.2); BASOPHILS % (AUTO) 1.1 % (0-2); HEMATOCRIT 38.5 % (36.0-47.0); HEMOGLOBIN 12.2 g/dL (12.0-15.5); LYMPHOCYTES % (AUTO) 39.2 % (13-45); MEAN CORPUSCULAR HEMOGLOBIN 21.8 pg (27.0-33.4); MEAN CORPUSCULAR HGB CONC 31.8 g/dL (32.0-36.0); MEAN CORPUSCULAR VOLUME 69 fl (80-97); MONOCYTES % (AUTO) 7.6 % (3-13); PLATELET COUNT 278 10^3/uL (150-450); RED BLOOD COUNT 5.61 10^6/uL (3.72-5.28); RED CELL DISTRIBUTION WIDTH 14.5 % (11.5-14.0); SEGMENTED NEUTROPHILS % (AUTO) 51.1 % (42-78); TOTAL CELLS COUNTED % (AUTO) 100 %; WHITE BLOOD COUNT 6.4 10^3/uL (4.0-10.5)
[2017-10-29 12:45] LABS: ALANINE AMINOTRANSFERASE 34 U/L (9-52); ALBUMIN 4.6 g/dL (3.5-5.0); ALKALINE PHOSPHATASE 56 U/L (38-126); ANION GAP 10 (5-19); ASPARTATE AMINO TRANSFERASE 16 U/L (14-36); BILIRUBIN,DIRECT 0.3 mg/dL (0.0-0.4); BILIRUBIN,TOTAL 0.3 mg/dL (0.2-1.3); BLOOD UREA NITROGEN 18 mg/dL (7-20); CALCIUM 10.5 mg/dL (8.4-10.2); CARBON DIOXIDE 24 mmol/L (22-30); CHLORIDE 109 mmol/L (98-107); GLUCOSE 82 mg/dL (75-110); POTASSIUM 4.4 mmol/L (3.6-5.0); SODIUM 143.4 mmol/L (137-145); TOTAL PROTEIN 8.2 g/dL (6.3-8.2)
== END ==
LOC: OD 11:47
PROVIDERS: ATTEND Surgery
DX: R11.0 Nausea (principal); Z90.49 Acquired absence of other specified parts of digestive tract
CPT/HCPCS: 36415; 80053; 85025

== ENCOUNTER → 2017-10-29 | Outpatient (CLI) | payer BC, OTHER ==
--- NOTE | 2017-10-29 13:05 | WOMENS IMAGING REPORT ---
EXAM DESCRIPTION: U/S ABDOMEN TOTAL COMPLETED DATE/TIME: 10/29/2017 12:54 pm REASON FOR STUDY: NAUSEA; R11.0 R10.0 ACUTE ABDOMEN COMPARISON: None. TECHNIQUE: Dynamic and static grayscale images acquired of the abdomen and recorded on PACS. Additio nal selected color Doppler and spectral images recorded. LIMITATIONS: None. FINDINGS: PANCREAS: No masses. Visualized pancreatic duct normal caliber. LIVER: Echotexture is coarse with increased echogenicity consistent with fatty infiltration. LIVER VASCULATURE: Normal directional flow of the main portal vein and hepatic veins. GALLBLADDER: Surgically absent. ULTRASOUND-DETECTED GARCIA'S SIGN: Negative. INTRAHEPATIC DUCTS AND COMMON DUCT: CBD and intrahepatic ducts normal caliber. No filling defects. INFERIOR VENA CAVA: Normal flow. AORTA: No aneurysm. RIGHT KIDNEY: Normal size. Normal echogenicity. No solid or suspicious masses. No hydronephrosis. No calcifications. LEFT KIDNEY: Normal size. Normal echogenicity. No solid or suspicious masses. No hydronephrosis. No calcifications. SPLEEN:Normal size. No solid masses. PERITONEAL AND PLEURAL SPACES: No ascites or effusions. OTHER: No other significant finding. IMPRESSION: FATTY LIVER. NO OTHER SIGNIFICANT FINDING. NO FLUID COLLECTION OR OTHER POSTOPERATIVE C OMPLICATION VISUALIZED RELATED TO RECENT CHOLECYSTECTOMY. TECHNICAL DOCUMENTATION: JOB ID: [id number] [employer]- All Rights Reserved
== END ==
LOC: WI 12:09
PROVIDERS: ATTEND Surgery
DX: R11.0 Nausea (principal); K76.0 Fatty (change of) liver, not elsewhere classified
CPT/HCPCS: 76700

== ENCOUNTER → 2017-11-22 | Outpatient (CLI) | payer BC, OTHER | LOC: OD 16:31 | PROVIDERS: ATTEND Internal Medicine Geriatric Medicine | DX: R73.9 Hyperglycemia, unspecified (principal) | CPT/HCPCS: 36415; 83036 ==

== ENCOUNTER → 2018-09-19 | Outpatient (CLI) | payer OTHER ==
--- NOTE | 2018-09-19 15:09 | WOMENS IMAGING REPORT ---
EXAM DESCRIPTION: 3D SCREENING MAMMO LEFT COMPLETED DATE/TIME: 09/19/2018 11:33 am REASON FOR STUDY: ROUTINE SCREENING LT BREAST Z12.31 ENCNTR SCREEN MAMMOGRAM FOR MALIGNANT NEOPLASM OF L[place]ISSA COMPARISON: Multiple since 2008 TECHNIQUE: Standard craniocaudal and mediolateral oblique views of the left breast recorded using di gital acquisition and breast tomosynthesis. LIMITATIONS: None. FINDINGS: BREAST: Left No masses, calcifications or architectural distortion. No areas of suspicion. There is a deflated saline breast implant ventral to the pectoralis muscle Read with the assistance of CAD. .[facility] - R2 Cenova Version 1.3 .[facility] - R2 Cenova Version 1.3 .[facility] - R2 Cenova Version 2.4 .[facility] - R2 Cenova Version 2.4 .[facility] - R2 Child [employer] Cook Version 9.2 IMPRESSION: NORMAL MAMMOGRAM. BIRADS 1. BREAST DENSITY: b. There are scattered areas of fibroglandular density. BIRAD: 1 Negative RECOMMENDATION: RECOMMENDATION: ROUTINE SCREENING. COMMENT: The patient has been notified of the results by letter per SA requirements. Additional no tification policies are in place for contacting patient with suspicious or incomplete findings. Quality ID #225: The [employer] recommends an annual screening mammogram for women aged 40 years or over. This facility utilizes a reminder system to ensure that all patients receive reminder letters, and/or direct phone calls for appointments. This includes reminders for routine scr eening mammograms, diagnostic mammograms, or other Breast Imaging Interventions when appropriate. Th is patient will be placed in the appropriate reminder system. The [employer] (ACR) has developed recommendations for screening MRI of the breast s in certain patient populations, to be used in conjunction with mammography. Breast MRI surveillance may be appropriate for women with more than 20% lifetime risk of developing breast cancer as determi mellissa by genetic testing, significant family history of the disease, or history of mantle radiation for Hodgkins Disease. ACR Practice Guidelines 2008. DBT Technology DBT is a type of tomographic mammography. With conventional mammography, overlapping breast tissue ma y make lesions difficult to detect, even with good compression. DBT uses an x-ray tube that rotates a round the breast, taking images at different angles. These images are then combined to create thin sl ices of the breast that the radiologist can view as a 3D reconstruction. The [employer] vascular solution unit can perform full-field digital mammograms (2D imaging); or DBT (3D imaging); or both, in a combination mode that quickly performs both the mammogram and the tomosynthesis scan while the breast is still compressed. PQRS 6045F: Fluoroscopic imaging is not utilized for breast tomosynthesis. TECHNICAL DOCUMENTATION: FINDING NUMBER: (1) ASSESSMENT: (1) JOB ID: [id number] [employer]- All Rights Reserved Reading location - IP/workstation name: [email or web address]
== END ==
LOC: WI 11:03
PROVIDERS: ATTEND Internal Medicine Medical Oncology
DX: Z12.31 Encounter for screening mammogram for malignant neoplasm of breast (principal)

== ENCOUNTER 2018-10-19 17:24 | Emergency (ER) | payer OTHER ==
[2018-10-19] MEDS ORDERED: ASPIRIN 81 MG TABLET, CHEWABLE PO ONE (17:46)
--- NOTE | 2018-10-19 17:47 | ER Document Report ---
ED Medical Screen (RME) - General Chief Complaint: Chest Pain Stated Complaint: CHEST PAIN Time Seen by Provider: 10/19/18 17:35 Primary Care Provider: MELISSA GILLILAND MD [Primary Care Provider] - Follow up as needed TRAVEL OUTSIDE OF THE [place] IN LAST 30 DAYS: No - HPI Notes: 10/19/18 17:46 History of breast cancer right-sided with a right-sided mastectomy on tamoxifen coming in for chest pain left side going down her arm since increased with breathing - Related Data Allergies/Adverse Reactions: Sulfa (Sulfonamide Antibiotics) Adverse Reaction (Verified 05/21/14 15:12) Past Medical History - Past Medical History Cardiac Medical History: Reports: Hx Hypertension Neurological Medical History: Reports: Hx Migraine Renal/ Medical History: Denies: Hx Peritoneal Dialysis Malignancy Medical History: Reports: Hx Breast Cancer - Right breast , s/p mastectomy Past Surgical History: Reports: Hx Breast Surgery - right breast, Hx Mastectomy - Right - Immunizations History of Influenza Vaccine for 06/2017 - 11/2017 Season: Refused Review of Systems - Review of Systems Cardiovascular: Chest pain Physical Exam - Vital signs Vitals: Temp Pulse Resp BP Pulse Ox 99.1 F 95 18 149/93 H 99 10/19/18 17:33 10/19/18 17:33 10/19/18 17:33 10/19/18 17:33 10/19/18 17:33 - Respiratory Respiratory status: No respiratory distress Chest status: Nontender Breath sounds: Normal Chest palpation: Normal - Cardiovascular Rhythm: Regular Heart sounds: Normal auscultation Course - Vital Signs Vital signs: Temp Pulse Resp BP Pulse Ox 99.1 F 95 18 149/93 H 99 10/19/18 17:33 10/19/18 17:33 10/19/18 17:33 10/19/18 17:33 10/19/18 17:33 Doctor's Discharge - Discharge Referrals: MELISSA GILLILAND MD [Primary Care Provider] - Follow up as needed
[2018-10-19 18:44] LABS: ABSOLUTE BASOPHILS # (AUTO) 0.1 10^3/uL (0.0-0.2); ABSOLUTE EOSINOPHILS # (AUTO) 0.1 10^3/uL (0.0-0.6); ABSOLUTE LYMPHOCYTES (AUTO) 2.5 10^3/uL (0.5-4.7); ABSOLUTE MONOCYTES (AUTO) 0.7 10^3/uL (0.1-1.4); ABSOLUTE NEUT (AUTO) 3.4 10^3/uL (1.7-8.2); EOSINOPHILS % (AUTO) 1.5 % (0-6); HEMATOCRIT 36.9 % (36.0-47.0); HEMOGLOBIN 11.9 g/dL (12.0-15.5); LYMPHOCYTES % (AUTO) 36.7 % (13-45); MEAN CORPUSCULAR HEMOGLOBIN 21.8 pg (27.0-33.4); MEAN CORPUSCULAR HGB CONC 32.1 g/dL (32.0-36.0); MEAN CORPUSCULAR VOLUME 68 fl (80-97); MONOCYTES % (AUTO) 10.2 % (3-13); PLATELET COUNT 271 10^3/uL (150-450); RED BLOOD COUNT 5.43 10^6/uL (3.72-5.28); RED CELL DISTRIBUTION WIDTH 15.7 % (11.5-14.0); SEGMENTED NEUTROPHILS % (AUTO) 50.6 % (42-78); TOTAL CELLS COUNTED % (AUTO) 100 %; WHITE BLOOD COUNT 6.8 10^3/uL (4.0-10.5)
--- NOTE | 2018-10-19 19:02 | RADIOLOGY REPORT (SQ) ---
EXAM DESCRIPTION: CHEST SINGLE VIEW COMPLETED DATE/TIME: 10/19/2018 6:50 pm REASON FOR STUDY: sob COMPARISON: 04/18/2017 EXAM PARAMETERS: NUMBER OF VIEWS: One view. TECHNIQUE: Single frontal radiographic view of the chest acquired. RADIATION DOSE: NA LIMITATIONS: None. FINDINGS: LUNGS AND PLEURA: No opacities, masses or pneumothorax. No pleural effusion. MEDIASTINUM AND HILAR STRUCTURES: No masses. Contour normal. HEART AND VASCULAR STRUCTURES: Heart normal in size. Normal vasculature. BONES: No acute findings. HARDWARE: None in the chest. OTHER: No other significant finding. IMPRESSION: NO ACUTE RADIOGRAPHIC FINDING IN THE CHEST. TECHNICAL DOCUMENTATION: JOB ID: [id number] [employer]- All Rights Reserved Reading location - IP/workstation name: [email or web address]
--- NOTE | 2018-10-19 19:30 | ER Document Report ---
ED General - General Chief Complaint: Chest Pain Stated Complaint: CHEST PAIN Time Seen by Provider: 10/19/18 17:35 Primary Care Provider: MELISSA GILLILAND MD [ACTIVE STAFF] - Follow up as needed Notes: Patient is a 53-year-old female with past medical history of breast cancer in remission, currently on tamoxifen prophylaxis who presents complaining of 2 days of left sided chest discomfort with intermittent of radiation of the pain to the left arm. Patient describes the pain as a stabbing, aching pain in her left lower chest along the sternal border. States the pain is worsened with breathing, moving or touching the area. Nothing seems to improve the pain. Denies a history of similar pain in the past. Denies any history of DVT or pulmonary embolus. No known cardiac history. She has not seen her primary doctor regarding today's concerns. Notes mild shortness of breath more related to pain. No nausea, vomiting diaphoresis. Symptoms have been relatively unchanged since onset but given that it was not improving she came to the emergency department today TRAVEL OUTSIDE OF THE [place] IN LAST 30 DAYS: No - Related Data Allergies/Adverse Reactions: Sulfa (Sulfonamide Antibiotics) Adverse Reaction (Verified 05/21/14 15:12) Past Medical History - General Information source: Patient - Social History Smoking Status: Never Smoker Chew tobacco use (# tins/day): No Frequency of alcohol use: None Drug Abuse: None Lives with: Family Family History: Reviewed & Not Pertinent Patient has suicidal ideation: No Patient has homicidal ideation: No - Past Medical History Cardiac Medical History: Reports: Hx Hypertension Neurological Medical History: Reports: Hx Migraine Renal/ Medical History: Denies: Hx Peritoneal Dialysis Malignancy Medical History: Reports: Hx Breast Cancer - Right breast , s/p mastectomy Past Surgical History: Reports: Hx Breast Surgery - right breast, Hx Mastectomy - Right Review of Systems - Review of Systems Notes: Constitutional: Negative for fever. HENT: Negative for sore throat. Eyes: Negative for visual changes. Cardiovascular: Positive for chest pain. Respiratory: Positive for shortness of breath. Gastrointestinal: Negative for abdominal pain, vomiting or diarrhea. Genitourinary: Negative for dysuria. Musculoskeletal: Negative for back pain. Skin: Negative for rash. Neurological: Negative for headaches, weakness or numbness. 10 point ROS negative except as marked above and in HPI. Physical Exam - Vital signs Vitals: Temp Pulse Resp BP Pulse Ox 99.1 F 95 18 149/93 H 99 10/19/18 17:33 10/19/18 17:33 10/19/18 17:33 10/19/18 17:33 10/19/18 17:33 Interpretation: Hypertensive Notes: PHYSICAL EXAMINATION: GENERAL: Well-appearing, well-nourished and in no acute distress. HEAD: Atraumatic, normocephalic. EYES: Pupils equal round and reactive to light, extraocular movements intact, sclera anicteric, conjunctiva are normal. ENT: nares patent, oropharynx clear without exudates. Moist mucous membranes. NECK: Normal range of motion, supple without lymphadenopathy LUNGS: Breath sounds clear to auscultation bilaterally and equal. No wheezes rales or rhonchi. HEART: Regular rate and rhythm without murmurs Chest wall: Pain reproduced on palpation of the left lower sternal border ABDOMEN: Soft, nontender, normoactive bowel sounds. No guarding, no rebound. No masses appreciated. EXTREMITIES: Normal range of motion, no pitting or edema. No cyanosis. NEUROLOGICAL: No focal neurological deficits. Moves all extremities spontaneously and on command. PSYCH: Normal mood, normal affect. SKIN: Warm, Dry, normal turgor, no rashes or lesions noted. Course - Re-evaluation Re-evalutation: 10/19/18 19:27 Presentation of chest pain in an otherwise well appearing patient. Low clinical suspicion for ACS given clinical history, exam, EKG without ST elevations or depressions, and negative initial troponin. HEART score less than or equal to 3. PE somewhat more concerning given history of malignancy on tamoxifen prophylaxis as well as component of pleuritic pain. D-dimer was sent and is noted to be elevated at 0.61. CT of the chest will therefore be obtained. CXR without evidence of pneumothorax or pneumonia. No widened mediastinum. Aortic dissection also seems unlikely given history, symmetric pulses, CXR, and vitals. 10/19/18 21:20 CTA negative for any evidence of an acute pulmonary embolus. No indication for serial troponin assay testing as patient's pain has been continuous for the past 48 hours and have a very low clinical suspicion that this is cardiac in origin. Do suspect likely muscular skeletal origin given reproducibility of pain on palpation as well as with movement. Overall assessment: Chest pain in a patient without evidence of cardiac or other serious etiology on workup today. I discussed with patient that, based on their age, risk factors and emergency department testing today, the likelihood that their symptoms are related to a heart attack is very low (estimated risk of heart attack or over the next 30 days of less than 2%). The patient demonstrates decision making capacity and has verbalized an understanding of these risks to me. Based on this, the patient has chosen to follow-up as an outpatient. Usual chest pain return precautions reviewed. The patient states understanding and agreement with this plan. - Vital Signs Vital signs: Temp Pulse Resp BP Pulse Ox 99.1 F 95 18 149/93 H 100 10/19/18 17:33 10/19/18 17:33 10/19/18 17:33 10/19/18 17:33 10/19/18 18:11 - Laboratory Result Diagrams: 10/19/18 18:25 10/19/18 19:53 Laboratory results interpreted by me: 10/19/18 10/19/18 10/19/18 18:25 18:25 19:53 RBC 5.43 H Hgb 11.9 L MCV 68 L MCH 21.8 L RDW 15.7 H D-Dimer 0.61 H Chloride 108 H - Diagnostic Test Radiology reviewed: Image reviewed, Reports reviewed Radiology results interpreted by me: 10/19/18 19:27 Chest x-ray: No acute infiltrate or pneumothorax - EKG Interpretation by Me Additional EKG results interpreted by me: 10/19/18 19:27 Sinus rhythm, rate 88. No ST elevations or depressions. QTC 431. Discharge - Discharge Clinical Impression: Shortness of breath, Costochondral chest pain, History of cancer of right breast Chest pain Qualifiers: Chest pain type: unspecified Qualified Code(s): R07.9 - Chest pain, unspecified Condition: Good Disposition: HOME, SELF-CARE Additional Instructions: You were seen today for chest pain. The exact cause of your pain is unclear. However, based on your cardiac enzyme testing, chest x-ray, and EKG it does not appear that it is from an immediately life-threatening cause at this time. Although your testing here is normal is critical that you follow-up with your primary care physician for continued evaluation of this chest pain and possible stress testing. I recommended you see your physician within the next 24-48 hours to be evaluated for consideration of a stress test. Please return to emergency department immediately if you have worsening of your chest pain, shortness of breath, vomiting, become unable to exert yourself due to pain or d ifficulty breathing, you pass out, or have any pain that radiates into your arms, jaw, or back. Please also return if you have any additional symptoms that are concerning to you. Referrals: MELISSA GILLILAND MD [ACTIVE STAFF] - Follow up in 3-5 days
[2018-10-19 20:25] LABS: ANION GAP 8 (5-19); BLOOD UREA NITROGEN 15 mg/dL (7-20); CALCIUM 9.1 mg/dL (8.4-10.2); CARBON DIOXIDE 26 mmol/L (22-30); CHLORIDE 108 mmol/L (98-107); GLUCOSE 88 mg/dL (75-110); POTASSIUM 4.1 mmol/L (3.6-5.0); SODIUM 141.6 mmol/L (137-145)
[2018-10-19 20:39] LABS: CREATINE KINASE MB < 0.22 ng/mL (<4.55); TROPONIN I < 0.012 ng/mL
--- NOTE | 2018-10-19 21:13 | RADIOLOGY REPORT (SQ) ---
CT CHEST ANGIOGRAPHY WITHOUT THEN WITH IV CONTRAST HISTORY: Shortness of breath. COMPARISON: None. TECHNIQUE: CT angiogram of the chest with IV contrast. 3-D MIP images were obtained in coronal and sagittal reconstructions. This exam was performed according to our departmental dose-optimization program, which includes automated exposure control, adjustment of the mA and/or kV according to patient size and/or use of iterative reconstruction technique. FINDINGS: No filling defects are identified in the pulmonary trunk, main left and right pulmonary arteries, or the segmental branches. There is no thoracic aortic aneurysm or dissection. Prior bilateral breast implants with partial collapse of the left implant is noted. The thyroid gland is unremarkable. There is no mediastinal, hilar, or axillary adenopathy. The heart size is normal without pericardial effusion. No consolidation, pleural effusion, or pneumothorax is seen. The visualized upper abdomen demonstrates hepatic steatosis and cholecystectomy clips. No acute osseous findings are appreciated. IMPRESSION: 1. No acute pulmonary embolism. 2. Clear lungs. 3. Hepatic steatosis.
[2018-10-19] MEDS ORDERED: KETOROLAC TROMETHAMINE INJ/PF 30 MG/1 ML SDV IV ONE (21:14)
[2018-10-19] MEDS ORDERED: LIDOCAINE 5% (700 MG) TRANSDERMAL ADH..PATCH TP ONE (21:14)
[2018-10-19 21:43] VITALS: BP 132/90
--- NOTE | 2018-10-19 22:05 | EKG REPORT ---
SEVERITY:- BORDERLINE ECG - SINUS RHYTHM PROBABLE LEFT ATRIAL ABNORMALITY : Confirmed by: Bob Jurado MD 19-Oct-2018 22:04:48
== END 2018-10-19 22:00 | disposition home or self-care (01) ==
LOC: ER 17:24
DX: R07.1 Chest pain on breathing (principal); R79.1 Abnormal coagulation profile; R06.02 Shortness of breath; I10 Essential (primary) hypertension; Z85.3 Personal history of malignant neoplasm of breast; Z79.899 Other long term (current) drug therapy; Z90.11 Acquired absence of right breast and nipple
CPT/HCPCS: 93005; 99285; 96374; 36415; 82553; 85025; 80048; 84484; 85379; 71045; 71275; 93010; J1885

== ENCOUNTER → 2019-09-23 | Outpatient (CLI) | payer OTHER ==
--- NOTE | 2019-09-23 09:02 | WOMENS IMAGING REPORT ---
EXAM DESCRIPTION: 3D SCREENING MAMMO LEFT COMPLETED DATE/TIME: 09/23/2019 8:35 am REASON FOR STUDY: Z12.39 ENCOUNTER FOR OTHER SCREENING FOR MALIGNANT NEOPLASM OF BREAST Z12.39 ENCO UNTER FOR OTH SCREENING FOR MALIGNANT NEOPLASM OF COMPARISON: 09/19/2018 and 09/12/2017. EXAM PARAMETERS: Standard craniocaudal and mediolateral oblique views of the breast recorded using d igital acquisition and breast tomosynthesis. Additional "push-back" craniocaudal and mediolateral ob lique images acquired. Read with the assistance of CAD. .[facility] - R2 Film [employer] Version 9.2 LIMITATIONS: None. FINDINGS: IMPLANT: Collapsed subglandular implant. BREAST LATERALITY: left Findings present which are benign by mammographic criteria. No suspicious masses, calcifications or a rchitectural distortion. Benign mammographic findings may include one or more of the following: Smooth masses, popcorn/rim/co arse calcifications, asymmetries, post-procedure changes, and lesions with long-standing stability. IMPRESSION: BENIGN FINDINGS. BIRADS 2. BREAST DENSITY: b. There are scattered areas of fibroglandular density. BIRAD: ASSESSMENT: 2 Benign Finding(s) RECOMMENDATION: RECOMMENDATION: ROUTINE SCREENING. COMMENT: The patient has been notified of the results by letter per SA requirements. Additional no tification policies are in place for contacting patient with suspicious or incomplete findings. Quality ID #225: The [employer] recommends an annual screening mammogram for women aged 40 years or over. This facility utilizes a reminder system to ensure that all patients receive reminder letters, and/or direct phone calls for appointments. This includes reminders for routine scr eening mammograms, diagnostic mammograms, or other Breast Imaging Interventions when appropriate. Th is patient will be placed in the appropriate reminder system. TECHNICAL DOCUMENTATION: FINDING NUMBER: (1) ASSESSMENT: (1) JOB ID: [id number] [employer]- All Rights Reserved Reading location - IP/workstation name: [email or web address]
== END ==
LOC: WI 07:54
PROVIDERS: ATTEND Internal Medicine Geriatric Medicine
DX: Z12.31 Encounter for screening mammogram for malignant neoplasm of breast (principal); Z98.82 Breast implant status

== ENCOUNTER 2020-02-27 09:01 | Day surgery (SDC) | payer OTHER ==
[~2020-02-27 09:01] MED LIST: CEFAZOLIN 2 GM/D5W RTU 2 GM/50 ML RTUPB IV PRN
[2020-02-27 11:23] LABS: HEMATOCRIT 33.2 % (36.0-47.0); HEMOGLOBIN 10.7 g/dL (12.0-15.5); MEAN CORPUSCULAR HEMOGLOBIN 21.9 pg (27.0-33.4); MEAN CORPUSCULAR HGB CONC 32.2 g/dL (32.0-36.0); MEAN CORPUSCULAR VOLUME 68 fl (80-97); PLATELET COUNT 222 10^3/uL (150-450); RED BLOOD COUNT 4.87 10^6/uL (3.72-5.28); RED CELL DISTRIBUTION WIDTH 15.3 % (11.5-14.0); WHITE BLOOD COUNT 6.3 10^3/uL (4.0-10.5)
[2020-02-27 11:27] LABS: APPEARANCE,URINE CLEAR; BILIRUBIN,URINE NEGATIVE (NEGATIVE); COLOR,URINE YELLOW; GLUCOSE, URINE NEGATIVE (NEGATIVE); KETONES,URINE NEGATIVE (NEGATIVE); LEUKOCYTE ESTERASE,URINE NEGATIVE (NEGATIVE); NITRITE,URINE NEGATIVE (NEGATIVE); PROTEIN,URINE NEGATIVE (NEGATIVE); URINE SPECIFIC GRAVITY 1.012; UROBILINOGEN,URINE NEGATIVE mg/dL (<2.0)
[2020-02-27 11:31] LABS: ANION GAP 5 (5-19); BLOOD UREA NITROGEN 27 mg/dL (7-20); CARBON DIOXIDE 31 mmol/L (22-30); CHLORIDE 104 mmol/L (98-107); GLUCOSE 104 mg/dL (75-110); POTASSIUM 3.5 mmol/L (3.6-5.0)
[2020-02-27] MEDS ORDERED: CEFAZOLIN 2 GM/D5W RTU 2 GM/50 ML RTUPB IV ONE (12:04)
[2020-02-27] MEDS ORDERED: LIDOCAINE 2% INJ-PF (20 MG/ML) 10 ML AMPUL ONE (12:05)
[2020-02-27] MEDS ORDERED: FENTANYL CITRATE INJ/PF 100 MCG/2 ML AMPUL ONE (12:05)
[2020-02-27] MEDS ORDERED: MIDAZOLAM 2 MG/2 ML INJ ONE (12:06)
[2020-02-27] MEDS ORDERED: PROPOFOL INJ 200 MG/20 ML VIAL IV ONE (12:06)
[2020-02-27] MEDS ORDERED: ONDANSETRON HCL INJ/PF 4 MG/2 ML SDV ONE (12:06)
[2020-02-27] MEDS ORDERED: LIDOCAINE 1% INJ-PF (10 MG/ML) 30 ML SDV ONE (12:08)
[2020-02-27] MEDS ORDERED: DIPHENHYDRAMINE HCL 50 MG/ML VIAL IV PRN (13:24)
[2020-02-27] MEDS ORDERED: OXYCODONE-ACETAMINOPHEN 5-325 MG TABLET PO PRN ×3 (13:24→13:27)
[2020-02-27] MEDS ORDERED: ONDANSETRON HCL INJ/PF 4 MG/2 ML SDV IV PRN ×2 (13:24→13:27)
[2020-02-27] MEDS ORDERED: PROMETHAZINE HCL INJ 25 MG/1 ML VIAL IV PRN ×2 (13:24)
[2020-02-27] MEDS ORDERED: MEPERIDINE HCL/PF INJ 25 MG/1 ML DISP.SYRIN IV PRN (13:24)
[2020-02-27] MEDS ORDERED: FENTANYL CITRATE INJ/PF 100 MCG/2 ML AMPUL IV PRN ×3 (13:24)
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
--- NOTE | 2020-02-27 13:29 | Discharge Summary ---
Discharge Summary (SDC) - Discharge Final Diagnosis: Left Small Finger Proximal Phalanx Date of Surgery: 02/27/20 Discharge Date: 02/27/20 Condition: Good Treatment or Instructions: Schedule Follow Up w/ Dr. Ash Lord @ [facility] for Surgery to be seen in 10-14 days or as scheduled [place]: [place]: [place]: Ice and elevate Keep splint clean/dry/intact, do not remove. If your fingers become numb please unwrap the Wyatt wrap but leave the splint in place, if the sensation does not return within 30 minutes please return to the emergency department. May begin finger range of motion attempting to make full fist. Please use ibuprofen (Motrin or Advil) 600-800 mg every 8 hours as needed for pain or fever DO NOT TAKE w/ TORADOL may use once TORADOL complete. You may also use acetaminophen (Tylenol) 1000 mg every 4-6 hours as needed for pain or fever. Please be aware that many medications contain acetaminophen, do not exceed a total of 1000 mg of acetaminophen every 6 hours. If ibuprofen and acetaminophen are not sufficient for your pain you may take the Percocet/Sibley. Please be aware that the Percocet/Sibley does contain Tylenol. Stool softener of choice when on pain medication. USE OF [id number] IBUPROFEN: Ibuprofen (Advil, Nuprin, Medipren, Motrin IB) is a medication for fever and pain control. In addition, it has anti- inflammatory effects which may be beneficial, especially in the treatment of injuries. It's best to take ibuprofen with food. Persons with ulcer disease or allergy to aspirin should notify their physician of this before taking ibuprofen. Ibuprofen can be given every four to six hours, for a total of four doses daily. Age Pain or fever dose Antiinflammatory dose 6-8 yr 200 mg (1 tab) 200 mg (1 tab) 9-11 yr 200 mg (1 tab) 200-400 mg (1-2 tab) 11-14 yr 200-400 mg (1-2 tab) 400 mg (2 tab) 15-adult 400 mg (2 tab) 600 mg (3 tab) ORAL NARCOTIC MEDICATION: You have been given a prescription for pain control. This medication is a narcotic. It's best taken with food, as nausea can result if taken on an empty stomach. Don't operate machinery or drive within six hours of taking this medication. Do not combine this medicine with alcohol, or with any medication which can cause sedation (such as cold tablets or sleeping pills) unless you get permission from the physician. Narcotics tend to cause constipation. If possible, drink plenty of fluids and eat a diet high in fiber and fruits. Please be aware that prescription narcotics also have the potential for abuse. People become addicted to these medications because of the general sense of wellbeing that they induce. This feeling along with a significant reduction in tension, anxiety, and aggression provides a stimulating seductive quality to these drugs. Once your pain is under control, we encourage you to discard your unused narcotics. Prescriptions: Oxycodone HCl/Acetaminophen [Percocet 5-325 mg Tablet] 1 tab PO Q6 PRN #25 tab PRN Reason: Referrals: DENIZ FARAH MD [Primary Care Provider] - Discharge Diet: As Tolerated Respiratory Treatments at Home: Deep Breathing/Coughing, Incentive Spirometer Discharge Activity: No Lifting Over 10 Pounds, No Lifting/Push/Pulling Report the Following to Your Physician Immediately: Fever over 101 Degrees, Unusual Bleeding, Redness, Swelling, Warmth, Increased Soreness
--- NOTE | 2020-02-27 13:52 | RADIOLOGY REPORT (SQ) ---
EXAM DESCRIPTION: NO CHG FLUORO; FINGER LEFT IMAGES COMPLETED DATE/TIME: 02/27/2020 1:32 pm REASON FOR STUDY: LEFT 5TH DIGIT FX/ PINNING COMPARISON: None. FLUOROSCOPY TIME: 0.56 seconds 4 Images saved to PACS LIMITATIONS: None. PROCEDURE: Pinning of the left 5th digit FINDINGS: Images from fluoro document the procedure. IMPRESSION: ORIF left 5th digit. Refer to operative note for further information. COMMENT: PQRS 6045F: Fluoroscopy time of the procedure is documented in the report. TECHNICAL DOCUMENTATION: JOB ID: [id number] [employer]- All Rights Reserved Reading location - IP/workstation name: [email or web address]
--- NOTE | 2020-02-27 13:52 | RADIOLOGY REPORT (SQ) ---
EXAM DESCRIPTION: NO CHG FLUORO; FINGER LEFT IMAGES COMPLETED DATE/TIME: 02/27/2020 1:32 pm REASON FOR STUDY: LEFT 5TH DIGIT FX/ PINNING COMPARISON: None. FLUOROSCOPY TIME: 0.56 seconds 4 Images saved to PACS LIMITATIONS: None. PROCEDURE: Pinning of the left 5th digit FINDINGS: Images from fluoro document the procedure. IMPRESSION: ORIF left 5th digit. Refer to operative note for further information. COMMENT: PQRS [id number]: Fluoroscopy time of the procedure is documented in the report. TECHNICAL DOCUMENTATION: JOB ID: [id number] 2010 [employer]- All Rights Reserved Reading location - IP/workstation name: [email or web address]
[2020-02-27] MEDS ORDERED: OXYCODONE-ACETAMINOPHEN 5-325 MG TABLET ONE (14:03)
[2020-02-27 15:44] VITALS: BP 155/100
== END 2020-02-27 15:10 | disposition home or self-care (01) ==
LOC: OROUT 09:01
PROVIDERS: ATTEND Orthopaedic Surgery
DX: S62.617A Displaced fracture of proximal phalanx of left little finger, initial encounter for closed fracture (principal); V49.9XXA Car occupant (driver) (passenger) injured in unspecified traffic accident, initial encounter; I10 Essential (primary) hypertension; Z88.2 Allergy status to sulfonamides; Z79.899 Other long term (current) drug therapy; Z85.3 Personal history of malignant neoplasm of breast
CPT/HCPCS: 36415; 85027; 87635; 80048; 81001; 73140; 26727; J2250; J3010; J3490 ×2; J2405; J2704; J0690; C9803; C1713

== ENCOUNTER → 2020-09-15 | Outpatient (CLI) | payer OTHER ==
--- NOTE | 2020-09-15 13:01 | WOMENS IMAGING REPORT ---
EXAM DESCRIPTION: 3D DX MAMMO LEFT UNILAT; U/S BREAST UNILAT LIMITED IMAGES COMPLETED DATE/TIME: 09/15/2020 9:44 am; 09/15/2020 10:51 am REASON FOR STUDY: N63.0; LEFT BREAST N63.0 N63.0 UNSPECIFIED LUMP IN UNSPECIFIED BREAST COMPARISON: Priors dating back to 2014 EXAM PARAMETERS: Standard craniocaudal and mediolateral oblique images of the breast recorded using digital acquisition and breast tomosynthesis. True lateral view and pushback views. Read with the assistance of CAD. .FORMERLY [facility], [facility] - [employer] Version 9.2 LIMITATIONS: None. FINDINGS: BREAST LATERALITY: left MASSES: No suspicious masses. CALCIFICATIONS: No new or suspicious calcifications. ARCHITECTURAL DISTORTION: None. ASYMMETRY: None noted. OTHER: Subglandular silicone implant. Ultrasound was performed. There are several hypoechoic well-circumscribed lesions which are wider th an tall and primarily cystic. There is a well-circumscribed round hypoechoic solid nodule with internal flow in the 1 o'clock posit ion about 7 cm from the nipple. Incomplete echogenic capsule. 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 BREAST DENSITY: b. There are scattered areas of fibroglandular density. BIRAD: ASSESSMENT: 3 Probably benign finding. Initial short-interval follow-up suggested. RECOMMENDATION: RECOMMENDED FOLLOW UP: Birads 3: The patient will return in 6 months for follow-up i dina. SPECIFIC INTERVENTION/IMAGING/CONSULTATION RECOMMENDED:The patient will return for 6 month follow-up targeted breast ultrasound. COMMUNICATION:The imaging findings were not discussed with the patient. Her referring provider has be en notified of the findings. COMMENT: The patient has been notified of the results by letter per MQSA requirements. Additional no tification policies are in place for contacting patient with suspicious or incomplete findings. Quality ID #225: The [employer] recommends an annual screening mammogram for women aged 40 years or over. This facility utilizes a reminder system to ensure that all patients receive reminder letters, and/or direct phone calls for appointments. This includes reminders for routine scr eening mammograms, diagnostic mammograms, or other Breast Imaging Interventions when appropriate. Th is patient will be placed in the appropriate reminder system. TECHNICAL DOCUMENTATION: FINDING NUMBER: (1) ASSESSMENT: (1) JOB ID: [id number] 2010 [employer]- All Rights Reserved Reading location - IP/workstation name: [email or web address]
== END ==
LOC: WI 09:11
PROVIDERS: ATTEND Specialist
DX: D24.2 Benign neoplasm of left breast (principal)
CPT/HCPCS: 76642; 77065